=== PATIENT | female | born 1955 | race Caucasian/White ===

== ENCOUNTER → 2018-03-13 05:54 | Outpatient (CLI) | payer BC, SELFPAY ==
--- NOTE | 2018-03-13 09:55 | STRESSREP ---
Stress Test Report Date: 03/13/2018 Procedure: Pharmacologic stress nuclear imaging study Indications: Shortness of breath/dyspnea my: CAD; cardiomyopathy; pulmonary hypertension Consent: Per the patient Procedure: The patient underwent pharmacologic (Regadenoson) evaluation with a peak heart rate of 104 beats per minute (65 predicted maximal heart rate) and a peak blood pressure of 130/72 mmHg. The baseline ECG demonstrated normal sinus rhythm. The peak pharmacologic ECG demonstrated no obvious ECG changes. There was an occasional PVC during recovery. There was no complaint of chest discomfort during pharmacologic infusion or recovery. The examination was discontinued secondary to completion of protocol. Impression: 1. Pharmacologic (Regadenoson) evaluation 2. Peak pharmacologic ECG with no obvious ECG changes. 3. There was an occasional PVC during recovery. 4. Nuclear images pending Myocardial perfusion imaging study: Technique: The patient was injected with 10.9 millicuries of technetium 99m Cardiolite and subsequently rest SPECT Cardiolite nuclear imaging was obtained in the horizontal long, vertical long, and short axis views. The patient underwent pharmacologic (Regadenoson) evaluation with a peak heart rate of 104 beats per minute (65 % percent predicted maximal heart rate) and a peak blood pressure of 130/72 mmHg. The patient was injected with 31.6 millicuries of technetium 99m Cardiolite and subsequently stress SPECT Cardiolite nuclear imaging was obtained in the horizontal long, vertical long, and short axis views. A gated Cardiolite study at peak stress was obtained. Interpretation: Rest and stress SPECT Cardiolite nuclear imaging status post realignment, normalization, and attenuation correction demonstrate a small area of subtle diminished tracer uptake near the apical segments that appear to be somewhat more prominent at rest as opposed to stress but otherwise without significant change. There is end systolic thickening and brightening. The gated Cardiolite study demonstrates myocardial thickening and inward wall motion. The reported LVEF is 57 %. Impression: 1. Rest and stress SPECT currently nuclear imaging demonstrate a small area of subtle diminished tracer uptake near the apical segments that appear to be somewhat more prominent at rest as opposed to stress but otherwise without significant change appearing compatible shifting soft tissue attenuation/artifact with no myocardial perfusion changes considered diagnostic for associated stress-induced myocardial ischemia. 2. The gated Cardiolite study reports an LVEF of 57 %. This note was generated with [employer] software. It may contain incorrect words, spelling, and punctuation that were not noted in checking the note before signing.
== END ==
PROVIDERS: Family Provider Physician Assistant Medical; PCP Physician Assistant Medical; Referring Provider Nurse Practitioner Family; Visit Provider Nurse Practitioner Family
DX: I42.8 Other cardiomyopathies (principal); I10 Essential (primary) hypertension; E78.2 Mixed hyperlipidemia
CPT/HCPCS: 78452; 93017; A9500; A4216; J2785

== ENCOUNTER → 2018-04-18 10:50 | Outpatient (CLI) | payer BC, SELFPAY ==
[2018-04-08 09:27] VITALS: BMI 35.6
--- NOTE | 2018-04-18 10:54 | ECHOCS_ITS ---
Reason For Study: DYSPNEA Procedure This was a 2D Doppler, Color Flow transthoracic echocardiogram. The study was technically difficult. Contrast injection was performed. Exam performed in department. Left Ventricle Normal LV size. Left ventricular systolic function is normal. The estimated ejection fraction is 55 %. No evidence for diastolic dysfunction. No regional wall motion abnormalities noted. Right Ventricle Normal RV size. Normal systolic function. Atria The left atrium is mildly enlarged. Normal right atrium. No doppler evidence for ASD. Mitral Valve There is no mitral annular calcification. Normal mitral valve. Trivial mitral valve insufficiency. Tricuspid Valve Normal tricuspid valve. Trivial tricuspid valve insufficiency. Unable to estimate RV systolic pressure/pulmonary artery pressure due to technically difficult study. Aortic Valve Trisinus/trileaflet aortic valve. Mild focal aortic valve calcification. Pulmonic Valve The pulmonic valve is not well visualized. Mild (1+) pulmonic valve insufficiency. Great Vessels Normal sized aortic root. Calcified aortic root. Pericardium/Pleural Trivial pericardial effusion. There are no echocardiographic indications of cardiac tamponade. Medication 22 gauge I.V. with prn adaptor inserted into left arm. Diluted definity 3ml given slow IV push to enhance endocardial definition. MMode/2D Measurements & Calculations LVIDd: 5.5 cm IVSd: 1.2 cm Ao root diam: 3.2 cm LVIDs: 4.3 cm LVPWd: 1.0 cm RVDd: 3.0 cm FS: 22.4 % LAV(MOD-bp): 42.5 ml LVAd ap4: 33.7 cm2 EDV(MOD-sp2): 55.3 ml LAV(MOD-bp) Indexed: 20.5 ml/m2 EDV(MOD-sp4): 117.4 ml EF(MOD-sp2): 36.8 % LAV(MOD-sp2): 39.6 ml EDV(sp4-el): 122.3 ml LAV(MOD-sp4): 44.7 ml LVAs ap4: 21.0 cm2 ESV(MOD-sp4): 54.2 ml ESV(sp4-el): 56.6 ml EF(MOD-sp4): 53.9 % EF(sp4-el): 53.7 % SV(MOD-sp4): 63.2 ml SV(MOD-sp2): 20.4 ml SV(sp4-el): 65.7 ml LA A4 area: 17.0 cm2 LA dimension(2D): 4.3 cm RA A4 area: 13.0 cm2 Time Measurements MV dec time: 0.25 sec Doppler Measurements & Calculations MV E max haim: 57.1 cm/sec Lat Peak E' Haim: 7.3 cm/sec Med Peak E' Haim: 5.2 cm/sec MV A max haim: 80.5 cm/sec E/E' lat: 7.8 E/E' med: 10.9 MV E/A: 0.71 Ao V2 max: 116.3 cm/sec LV V1 max: 81.2 cm/sec PA V2 max: 100.9 cm/sec Ao max P.4 mmHg LV V1 max P.6 mmHg PI end-d haim: 96.5 cm/sec Interpretation Summary The study was technically difficult. Contrast injection was performed. Left ventricular systolic function is normal. The estimated ejection fraction is 55 %. The left atrium is mildly enlarged. Trivial mitral valve insufficiency. Trivial tricuspid valve insufficiency. Mild focal aortic valve calcification. Mild (1+) pulmonic valve insufficiency. Calcified aortic root. Trivial pericardial effusion. There are no echocardiographic indications of cardiac tamponade. Unable to estimate RV systolic pressure/pulmonary artery pressure due to technically difficult study. No evidence for diastolic dysfunction. Ordering Physician: River Lujan/Gucci Clancy Referring Physician: DAWN GUIDO Performed By: Mandy Alston, KODI, RVT
--- OUTSIDE RECORDS SUMMARY | 2018-06-04 02:13 | XMS RPT_ITS | Summary of Care ---
:1955 Author Organization [facility] Address [address] [place] [address] Phone Care Team Providers Name Role Phone Chiara Randhawa PA-C Primary Care Provider Reason for Visit Reason Comments Pain Follow-up Pain Follow-up Encounter Details Date Type Department Care Team Description 06/05/2017 Office Visit [facility] Eh Garcia Chondromalacia of right patella (Primary Dx); Orthopedic and MD Prasanna Derangement of collateral ligament of left knee Sports Medicine [address] [facility] [address] [place], [place] Medical Office [address] [place] [address] [place] [address] Allergies Active Allergy Reactions Severity Noted Date Comments Other Other (See Comments) 08/25/2015 Dustm, mold, smoke as of this encounter Medications Prescription Sig. Disp. Refills Start Date End Date Status albuterol (PROVENTIL) 07/28/2015 Active 2.5 mg /3 mL (0.083 %) nebulizer solution amoxicillin-clavulanate 07/28/2015 Active (AUGMENTIN) 875-125 mg per tablet azithromycin 07/28/2015 Active (ZITHROMAX) 500 MG tablet ciprofloxacin HCl 07/18/2015 Active (CIPRO) 500 MG tablet levothyroxine 07/21/2015 Active (SYNTHROID, LEVOTHROID) 150 MCG tablet montelukast (SINGULAIR) 07/28/2015 Active 10 mg tablet predniSONE (DELTASONE) 07/28/2015 Active 20 MG tablet predniSONE (DELTASONE) 07/10/2015 Active 10 MG tablet spironolactone 07/26/2015 Active (ALDACTONE) 50 MG tablet sulfamethoxazole-trimet 07/28/2015 Active hoprim (BACTRIM DS,SEPTRA DS) 800-160 mg per tablet INCRUSE ELLIPTA 62.5 08/17/2015 Active mcg/actuation DsDv acetaminophen (TYLENOL) Take 1,000 mg by Active 500 MG tablet mouth. aspirin 81 MG EC tablet Take 81 mg by 11/01/2011 Active mouth. biotin 1 mg tablet Take 1 tablet by Active mouth. carvedilol (COREG) 12.5 07/09/2013 Active MG tablet cholecalciferol, Take 1,000 Units Active vitamin D3, 1,000 unit by mouth. tablet cinnamon bark 500 mg Take by mouth. Active capsule clobetasol (OLUX) 0.05 Apply topically. Active % topical foam doxepin (SINEQUAN) 50 Take 50 mg by 07/14/2012 Active MG capsule mouth. doxepin (SINEQUAN) 25 09/22/2015 Active MG capsule VITAMIN D2 50,000 unit 09/20/2015 Active capsule ferrous sulfate 325 (65 Take 325 mg by Active FE) MG tablet mouth. fluticasone-salmeterol Inhale 2 puffs. Active (ADVAIR HFA) 230-21 mcg/actuation inhaler fluticasone-vilanterol Inhale. Active 100-25 mcg/dose DsDv furosemide (LASIX) 40 Take 40 mg by 01/08/2012 Active MG tablet mouth. gabapentin (NEURONTIN) Take 200 mg by Active 100 MG capsule mouth. MAR OIL ORAL Take by mouth. Active glimepiride (AMARYL) 4 09/20/2015 Active MG tablet insulin glargine 25 units sc qam, 06/10/2014 Active (LANTUS) 100 unit/mL (3 125 units sc mL) In qhs.. lansoprazole (PREVACID) Take 30 mg by 11/26/2013 Active 30 MG capsule mouth. loratadine (CLARITIN) 5 Take by mouth. Active mg/5 mL syrup mometasone (NASONEX) 50 2 sprays into Active mcg/actuation nasal each nostril. spray multivitamin Take 1 tablet by 01/08/2012 Active (THERAGRAN) per tablet mouth. potassium chloride Take 10 mEq by 07/14/2012 Active (K-DUR) 10 MEQ CR mouth. tablet traMADol (ULTRAM) 50 mg Take 50 mg by 07/14/2012 Active tablet mouth. valsartan-hydrochloroth Take 1 tablet by 01/08/2012 Active iazide (DIOVAN-HCT) mouth. 160-25 mg per tablet celecoxib (CELEBREX) TAKE 2 TO 3 90 capsule 3 04/24/2017 Active 100 MG capsule CAPSULES BY MOUTH DAILY as of this encounter Active Problems Problem Noted Date Chondromalacia of right patella 08/25/2015 Derangement of collateral ligament of left knee 08/25/2015 Social History Tobacco Use Types Packs/Day Years Used Date Never Smoker Smokeless Tobacco: Never Used Alcohol Use Drinks/Week oz/Week Comments No 0 Standard drinks or equivalent 0.0 Sex Assigned at Date Recorded Not on file as of this encounter Last Filed Vital Signs Vital Sign Reading Time Taken Blood Pressure 115/73 06/05/2017 11:04 AM EST Pulse 84 06/05/2017 11:04 AM EST Temperature - - Respiratory Rate 18 06/05/2017 11:04 AM EST Oxygen Saturation - - Inhaled Oxygen Concentration - - Weight 99.3 kg (219 lb) 06/05/2017 11:04 AM EST Height 167.6 cm (5' 6) 06/05/2017 11:04 AM EST Body Mass Index 35.35 06/05/2017 11:04 AM EST in this encounter Progress Notes Eh Garcia MD - 06/05/2017 11:56 AM ESTFormatting of this note may be different from the original. [facility] [address] ([address]) [facility] [address] [facility] [address] Urbano Celestin is a 62 y.o. female being seen today, 06/05/17, Chief Complaint Patient presents with ??? Right Knee - Pain, Follow-up ??? 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 Apparently she has a hearing coming up soon to allow a diagnosis of DJD. On her last visit we try to get cortisone injections involving both knees with previous injections helped substantially authorization was not forthcoming and now she has a hearing pending Physical Exam Dictation: [PE] physical examination she does have patellofemoral crepitance in both knees she has no effusion she has joint line tenderness medially can fully extend and flexes to at least 105?? on both knees. There is no instability that can be appreciated standing AP x-rays were obtained today as well one can see mild/moderate medial compartment narrowing of both knees consistent with her early medial compartment Assessment and Plan Dictation: [AP]is allowed apparently hearing pending for allowance of DJD plan once her hearing processes over I will request authorization for injections as her original diagnoses would warrant injections and can get any further allowance of DJD would not change my treatment at this point as I do not feel her disease is bad enough to warrant any other surgical intervention. I have reviewed all relevant histories, medications, allergies, and problem list items with Urbano Celestin during this visit. Review of Systems Constitutional: Negative for appetite change, fatigue and fever. HENT: Negative for sore throat and trouble swallowing. Respiratory: Negative for chest tightness and shortness of breath. Cardiovascular: Negative. Negative for chest pain and palpitations. Gastrointestinal: Negative for nausea and vomiting. Endocrine: Negative. Genitourinary: Negative. Skin: Negative. Allergic/Immunologic: Negative. Neurological: Negative. Negative for light-headedness and headaches. Hematological: Negative. Psychiatric/Behavioral: Negative for agitation and confusion. BP 115/73 Pulse 84 Resp 18 Ht 5' 6 Wt 99.3 kg (219 lb) BMI 35.35 kg/m?? Imaging: No results found. SNOMED CT(R) 1. Chondromalacia of right patella CHONDROMALACIA OF RIGHT PATELLA 2. Derangement of collateral ligament of left knee OLD DISRUPTION OF LIGAMENT OF KNEE Return in about 4 weeks (around 07/03/2017). Eh Garcia MDin this encounter Plan of Treatment Upcoming Encounters Date Type Specialty Care Team Description 07/11/2017 Office Visit Orthopedic Surgery Eh Garcia MD [address] [place] [address] [phone] Health Maintenance Due Date Last Done Comments COLONOSCOPY 1955 HEPATITIS C SCREENING 1955 PAP SMEAR 1955 TETANUS EVERY 10 YR 1955 ZOSTER VACCINE 2016 SEQUENTIAL INFLUENZA VACCINE (#1) 2017 as of this encounter Visit Diagnoses Diagnosis Chondromalacia of right patella - Primary Derangement of collateral ligament of left knee Insurance Payer Benefit Plan / Group Subscriber ID Type Phone Address [employer] [id number] Guarantor Name Account Type Relation to Date of Phone Billing Patient Address [id number] Workers Comp Self 1955 Home: [address] [place] [address] [phone] [place] [address] 88 as of this encounter
--- OUTSIDE RECORDS SUMMARY | 2018-06-04 02:13 | XMS RPT_ITS | Summary of Care ---
:1955 Author Organization [facility] Address [address] [place] [address] Care Team Providers Name Role Phone Chiara Randhawa PA-C Primary Care Provider Reason for Visit Reason Comments Pain Pain Encounter Details Date Type Department Care Team Description 07/11/2017 Office Visit [facility] Eh Garcia Acute arthropathy (Primary Dx); Orthopedic and MD Prasanna Chondromalacia of right patella; Sports Medicine [address] Derangement of collateral ligament of left knee [address] [place], [place] Medical Office [address] [place] [address] [place] [address] Allergies Active Allergy Reactions Severity [...] 100 unit/mL (3 125 units sc mL) InPn qhs.. lansoprazole (PREVACID) Take 30 mg by [...] this encounter Active Problems Problem Noted Date Acute arthropathy 07/11/2017 Chondromalacia of right patella 08/25/2015 Derangement of collateral ligament of left knee 08/25/2015 Social History Tobacco Use Types Packs/Day Years Used Date Never Smoker Smokeless Tobacco: Never Used Alcohol Use Drinks/Week oz/Week Comments No 0 Standard drinks or equivalent 0.0 Sex Assigned at Date Recorded Not on file as of this encounter Last Filed Vital Signs Vital Sign Reading Time Taken Blood Pressure 138/76 07/11/2017 10:42 AM EST Pulse 80 07/11/2017 10:42 AM EST Temperature - - Respiratory Rate - - Oxygen Saturation - - Inhaled Oxygen Concentration - - Weight 101.2 kg (223 lb) 07/11/2017 10:42 AM EST Height 167.6 cm (5' 6) 07/11/2017 10:42 AM EST Body Mass Index 35.99 07/11/2017 10:42 AM EST in this encounter Progress Notes Eh Garcia MD - 07/11/2017 10:59 AM ESTFormatting of this note may be different from the original. [facility] [address] (11) [facility] [address] [facility] [phone] Urbano Celestin is a 62 y.o. female being seen today, 07/11/17, Chief Complaint Patient presents with ??? Left Knee - Pain ??? Right Knee - Pain [chief complaint] bilateral knee pain HPI Dictation: [hpi] is allowed diagnoses are as noted cortisone injections in the past of helped her pain substantially with previous arthroscopy on the left knee ??2 and recent x-ray showing mild/moderate medial compartment narrowing suggestive of early medial compartment arthritis Physical Exam Dictation: [PE] point tenderness medial joint line both knees she has patellofemoral crepitance bilaterally shehas no effusion she can fully extend and flexes to get 105?? Assessment and Plan Dictation: [AP] man will repeat request authorization for bilateral cortisone injections using her allow diagnosis will see her back was I have reviewed all relevant histories, medications, allergies, and problem list items with Urbano Villegas Sabi during this visit. Review of Systems Constitutional: [...] Psychiatric/Behavioral: Negative for agitation and confusion. BP 138/76 (BP Location: Right arm, Patient Position: Sitting, BP Cuff Size: Adult) Pulse 80 Ht5' 6 Wt 101.2 kg (223 lb) BMI 35.99 kg/m?? Imaging: No results found. SNOMED CT(R) 1. Acute arthropathy ACUTE ARTHROPATHY 2. Chondromalacia of right patella CHONDROMALACIA OF RIGHT PATELLA 3. Derangement of collateral ligament of left knee OLD DISRUPTION OF LIGAMENT OF KNEE Return in about 4 weeks (around 08/08/2017). Eh Garcia MDin this encounter Plan of Treatment Upcoming Encounters Date Type Specialty Care Team Description 08/09/2017 Office Visit Orthopedic Surgery Eh Garcia MD [address] [place] [address] Health Maintenance Due Date Last Done Comments COLONOSCOPY 1955 HEPATITIS C SCREENING 1955 PAP SMEAR 1955 TETANUS EVERY 10 YR 1955 ZOSTER VACCINE 2016 SEQUENTIAL INFLUENZA VACCINE (#1) 2017 as of this encounter Visit Diagnoses Diagnosis Acute arthropathy - Primary Unspecified arthropathy, site unspecified Chondromalacia of right patella Derangement of collateral ligament of left knee Insurance Payer Benefit Plan / Group Subscriber ID Type Phone Address [employer] Guarantor Name Account Type Relation to Date of Phone Billing Patient Address [id number] Workers Comp Self 1955 Home: [address] [phone] [place] [address] 88 as of this encounter
--- OUTSIDE RECORDS SUMMARY | 2018-06-04 02:13 | XMS RPT_ITS | Summary of Care ---
:1955 Author Organization [facility] Address [address] [place] [address] Phone Care Team Providers Name Role Phone Chiara Randhawa PA-C Primary Care Provider Encounter Details Date Type Department Care Team Description 06/05/2017 Hospital Encounter [facility] [place], Eh Mims, [address] [place], [place] [address] [phone] [place] [address] Allergies Active Allergy Reactions Severity Noted Date [...] Not on file as of this encounter Plan of Treatment Upcoming Encounters Date Type Specialty Care Team Description 07/11/2017 Office Visit Orthopedic Surgery ViauEh MD [address] [place] [address] [phone] Health Maintenance Due Date Last Done Comments COLONOSCOPY 1955 HEPATITIS C SCREENING 1955 PAP SMEAR 1955 TETANUS EVERY 10 YR 1955 ZOSTER VACCINE 2016 SEQUENTIAL INFLUENZA VACCINE (#1) 2017 as of this encounter Insurance Payer Benefit Plan / Group Subscriber ID Type Phone Address [employer] [id number] as of this encounter
--- OUTSIDE RECORDS SUMMARY | 2018-06-04 02:13 | XMS RPT_ITS | Summary of Care ---
:1955 Author Organization [facility] Address [address] [place] [address] Phone Care Team Providers Name Role Phone Driss Mcgregor MD Primary Care Provider Reason for Visit Reason Comments Pain Follow-up Pain Follow-up Encounter Details Date Type Department Care Team Description 02/07/2017 Office Visit [facility] Eh Garcia Chondromalacia of right Orthopedic and MD Prasanna patella (Primary Sports Medicine [address] Dx);Derangement of [address] [place], [place] collateral ligament of Medical Office [facility] left knee [facility] [phone] [place] [address] Allergies Active Allergy Reactions Severity [...] TAKE 2 TO 3 90 capsule 3 01/09/2017 Active 100 MG capsule CAPSULES BY MOUTH DAILY as of this encounter Active Problems Problem Noted Date Chondromalacia of right patella 08/25/2015 Derangement of collateral ligament of left knee 08/25/2015 as of this encounter Social History Tobacco Use Types Packs/Day Years Used Date Never Smoker Smokeless Tobacco: Never Used Sex Assigned at Date Recorded Not on file as of this encounter Last Filed Vital Signs Vital Sign Reading Time Taken Blood Pressure 144/86 02/07/2017 11:05 AM EDT Pulse 76 02/07/2017 11:05 AM EDT Temperature - - Respiratory Rate - - Oxygen Saturation - - Inhaled Oxygen Concentration - - Weight 98.9 kg (218 lb) 02/07/2017 11:05 AM EDT Height 167.6 cm (5' 6) 02/07/2017 11:05 AM EDT Body Mass Index 35.19 02/07/2017 11:05 AM EDT in this encounter Progress Notes JenauEh MD - 02/07/2017 11:47 AM EDTFormatting of this note may be different from the original. [facility] [address] (11) [facility] [address] [facility] [phone] Urbano Villegas Sabi is a 61 y.o. female being seen today, 02/07/17, Chief Complaint Patient presents with ??? Left Knee - Pain, Follow-up ??? Right Knee - Pain, Follow-up [chief complaint] bilateral knee pain HPI Dictation: [hpi] seen in follow-up she has had prior injections both knees approximately 4 months ago which relieved her pain 70-80% left knee more symptomatic than right with diagnosis as noted Physical Exam Dictation: [PE] point tenderness medial joint line right knee diffuse tenderness left knee no crepitance can fully extend flexes past 100?? Assessment and Plan Dictation: [AP] knee pain with diagnoses as noted plan particular injections helped substantially request authorization for bilateral knee injections through Work[employer]. I have reviewed all relevant histories, medications, [...] Psychiatric/Behavioral: Negative for agitation and confusion. BP 144/86 Pulse 76 Ht 5' 6 Wt 98.9 kg (218 lb) BMI 35.19 kg/m2 Imaging: No results found. SNOMED CT(R) 1. Chondromalacia of right patella CHONDROMALACIA OF PATELLA 2. Derangement of collateral ligament of left knee OLD DISRUPTION OF LIGAMENT OF KNEE Return in about 10 days (around 02/17/2017). Eh Garcia MDin this encounter Plan of Treatment Health Maintenance Due Date Last Done Comments COLONOSCOPY 1955 HEPATITIS C SCREENING 1955 PAP SMEAR 1955 TETANUS EVERY 10 YR 1955 ZOSTER VACCINE 2016 SEQUENTIAL INFLUENZA VACCINE (#1) 2017 as of this encounter Visit Diagnoses Diagnosis Chondromalacia of right patella - Primary Derangement of collateral ligament of left knee in this encounter Insurance Payer Benefit Plan / Group Subscriber ID Type Phone Address [employer] [id number] Guarantor Name Account Type Relation to Date of Phone Billing Patient Address [id number] Workers [employer] Self 1955 Home: [address] [facility] [phone] [place] [address] 88 as of this encounter
--- OUTSIDE RECORDS SUMMARY | 2018-06-04 02:13 | XMS RPT_ITS | Summary of Care ---
:1955 Author Organization [facility] Address [address] [id number] Care Team Providers Name Role Phone SydneeChiara Irene NAIDU Primary Care Provider Reason for Visit Reason Comments Injections bilateral knee Encounter Details Date Type Department Care Team Description 01/13/2018 Clinical Support [facility] Indu Turner Acute arthropathy (Primary Dx); Orthopedic & Sports PRETTY Deshpande Chondromalacia of right patella; Medicine Physicians [address] Derangement of collateral ligament of left knee [address] [place] [address] [phone] Allergies Active Allergy Reactions Severity Noted Date Comments Nut - Unspecified Other Other (See Comments) 08/25/2015 Dustm, mold, [...] iazide (DIOVAN-HCT) mouth. 160-25 mg per tablet finasteride (PROSCAR) 5 08/01/2017 Active mg tablet ARNUITY ELLIPTA 100 07/16/2017 Active mcg/actuation DsDv celecoxib (CELEBREX) TAKE 2 TO 3 90 capsule 3 09/05/2017 Active 100 MG capsule CAPSULES BY MOUTH [...] Not on file as of this encounter Progress Notes Indu Turner CNP - 01/12/2018 4:54 PM EDTAssociated Order(s): [place] ORT LARGE JOINT ARTHROCENTESISPost-Procedure Diagnose(s): Acute arthropathy; Chondromalacia of right patella; Derangement of collateral ligament of left knee LG Jt Injection/Arthrocentesis Performed by: INDU TURNER Authorized by: INDU TURNER CPT 45634 - Large Joint Arthrocentesis: Consent given by: Patient Time out: Immediately prior to the procedure a time out was called Timeout performed at: 01/13/2018 4:54 PM Physician or proceduralist has discussed critical or nonroutine steps, procedure duration and anticipated blood loss: Yes Supporting Documentation: Indications: Pain Procedure Details: Location: Knee Site: L knee Prep: patient was prepped and draped in usual sterile fashion Needle size: 22 G Approach: Anterolateral Medications: 1 mL dexamethasone 4 mg/mL, 1 mL triamcinolone acetonide 40 mg/mL Anesthetic used: Bupivacaine 0.5% and Lidocaine 1% Anesthetic amount (mL): 4 Patient tolerance: Patient tolerated the procedure well with no immediate complications Indu Turner CNP - 01/12/2018 4:54 PM EDTAssociated Order(s): [place] ORT LARGE JOINT ARTHROCENTESISPost-Procedure Diagnose(s): Acute arthropathy; Chondromalacia of right patella; Derangement of collateral ligament of left knee LG Jt Injection/Arthrocentesis Performed by: INDU TURNER Authorized by: INDU TURNER CPT [id number] - Large Joint Arthrocentesis: Consent given by: Patient Time out: Immediately prior to the procedure a time out was called Timeout performed at: 01/13/2018 4:54 PM Physician or proceduralist has discussed critical or nonroutine steps, procedure duration and anticipated blood loss: Yes Supporting Documentation: Indications: Pain Procedure Details: Location: Knee Site: R knee Prep: patient was prepped and draped in usual sterile fashion Needle size: 22 G Approach: Anterolateral Medications: 1 mL dexamethasone 4 mg/mL, 1 mL triamcinolone acetonide 40 mg/mL Anesthetic used: Bupivacaine 0.5% and Lidocaine 1% Anesthetic amount (mL): 4 Patient tolerance: Patient tolerated the procedure well with no immediate complications Indu Turner, [employer] - 01/12/2018 4:53 PM EDTFormatting of this note may be different from the original. 01/12/18 Urbano Celestin 1955 No chief complaint on file. HISTORY of Present Illness: Urbano Celestin is a 62 y.o. year old female that presents today with No chief complaint on file. . Urbano Celestin has had injections in the past. Last injection to right/left knee was in August by and they tolerated well. They have been treated w/ oral medications & injections. Patient denies new injury to the knees. ?? The following portions of the patient's history were reviewed and updated as appropriate: allergies,current medications, past surgical history and problem list Assessment None Referred By: No ref. provider found PAST MEDICAL HISTORY The patient's Medications, Allergies, Past Surgical History, Medical History, Family History and Social History were reviewed and can be found in their online medical record, and I have reviewed this information with Urbano Celestin at the time of their visit. They are significant for Past Medical History: Diagnosis Date ??? Hypertension PHYSICAL EXAM Ortho Exam point tenderness medial joint line both knees no crepitance fully extend and flexes past 100 Additional Notes: IMAGING Notes: none new today. Reviewed from last visit. IMPRESSION And PLAN: Cortisone injection today. Will follow up in 3 months if effective. Call if no improvement in [address](R) 1. Acute arthropathy ACUTE ARTHROPATHY 2. Chondromalacia of right patella CHONDROMALACIA OF RIGHT PATELLA 3. Derangement of collateral ligament of left knee OLD DISRUPTION OF LIGAMENT OF KNEE Indu Turner CNP in this encounter Plan of Treatment Upcoming Encounters Date Type Specialty Care Team Description 04/15/2018 Clinical Support Orthopedic Surgery Indu Turner CNP [address] [id number] [phone] Health Maintenance Due Date Last Done Comments COLONOSCOPY 1955 HEPATITIS C SCREENING 1955 PAP SMEAR 1955 TETANUS EVERY 10 YR 1955 ZOSTER VACCINES (1 of 2) 2006 SEQUENTIAL INFLUENZA VACCINE (#1) 2018 as of this encounter Procedures Procedure Name Priority Date/Time Associated Comments Diagnosis SC ARTHROCENTESIS Routine 01/12/2018 4:54 Acute arthropathy Results for this ASPIR&/INJ MAJOR PM EDT Chondromalacia of procedure are in JT/BURSA W/O US right patella the results Derangement of section. collateral ligament of left knee SC ARTHROCENTESIS Routine 01/12/2018 4:54 Acute arthropathy Results for this ASPIR&/INJ MAJOR PM EDT Chondromalacia of procedure are in JT/BURSA W/O US right patella the results Derangement of section. collateral ligament of left knee in this encounter Results Joint Injection/Arthrocentesis (01/12/2018 4:54 PM) Narrative Performed At Indu Turner CNP? 01/13/2018?1:12 PM LG Jt Injection/Arthrocentesis Performed by: INDU TURNER Authorized by: INDU TURNER CPT [id number] - Large Joint Arthrocentesis: ?Consent given by:?Patient ?Time out: Immediately prior to the procedure a time out was called?Timeout performed at:?01/13/2018 4:54 PM ?Physician or proceduralist has discussed critical or nonroutine steps, procedure duration and anticipated blood loss:?Yes Supporting Documentation: ?Indications:?Pain Procedure Details: ?Location:?Knee ?Site:?L knee ?Prep: patient was prepped and draped in usual sterile fashion?Needle size:?22 G ?Approach:?Anterolateral ?Medications:?1 mL dexamethasone 4 mg/mL, 1 mL triamcinolone acetonide 40 mg/mL ?Anesthetic used:?Bupivacaine 0.5% and Lidocaine 1% ?Anesthetic amount (mL):?4 ?Patient tolerance:?Patient tolerated the procedure well with no immediate complications Joint Injection/Arthrocentesis (01/12/2018 4:54 PM) Narrative Performed At Indu Turner CNP? 01/13/2018?1:12 PM LG Jt Injection/Arthrocentesis Performed by: INDU TURNER Authorized by: INDU TURNER CPT [id number] - Large Joint Arthrocentesis: ?Consent given by:?Patient ?Time out: Immediately prior to the procedure a time out was called?Timeout performed at:?01/13/2018 4:54 PM ?Physician or proceduralist has discussed critical or nonroutine steps, procedure duration and anticipated blood loss:?Yes Supporting Documentation: ?Indications:?Pain Procedure Details: ?Location:?Knee ?Site:?R knee ?Prep: patient was prepped and draped in usual sterile fashion?Needle size:?22 G ?Approach:?Anterolateral ?Medications:?1 mL dexamethasone 4 mg/mL, 1 mL triamcinolone acetonide 40 mg/mL ?Anesthetic used:?Bupivacaine 0.5% and Lidocaine 1% ?Anesthetic amount (mL):?4 ?Patient tolerance:?Patient tolerated the procedure well with no immediate complications in this encounter Visit Diagnoses Diagnosis Acute arthropathy - Primary Unspecified arthropathy, site unspecified Chondromalacia of right patella Derangement of collateral ligament of left knee Administered Medications Inactive Administered Medications - up to 3 most recent administrations Medication Order MAR Action Action Date Dose Rate Site dexamethasone (DECADRON) 1 mL, Given 01/12/2018 16:54 EDT 2 mL triamcinolone acetonide (KENALOG-40) 40 mg/mL 1 mL Injection, Starting 01/12/18 at 1654 dexamethasone (DECADRON) 1 mL, triamcinolone Given 01/12/2018 16:55 EDT 2 mL acetonide (KENALOG-40) 40 mg/mL 1 mL Injection, Starting 01/12/18 at 1655 in this encounter
--- OUTSIDE RECORDS SUMMARY | 2018-06-04 02:13 | XMS RPT_ITS | Summary of Care ---
:1955 Author Organization [facility] Address [address] [id number] Care Team Providers Name Role Phone Chiara Randhawa PA-C Primary Care Provider Reason for Visit Reason Comments Injections bilateral knee Encounter Details Date Type Department Care Team Description 08/09/2017 Office Visit [facility] Orthopedic Eh Sanders Acute arthropathy and Sports Medicine MD Prasanna (Primary Dx) [address] [facility] [address] [facility] Medical Office [address] [phone] [place] [address] Allergies Active Allergy Reactions Severity [...] 100 MG capsule CAPSULES BY MOUTH DAILY finasteride (PROSCAR) 5 08/01/2017 Active mg tablet ARNUITY ELLIPTA 100 07/16/2017 Active mcg/actuation DsDv as of this encounter Active Problems Problem [...] Vital Sign Reading Time Taken Blood Pressure 148/83 08/09/2017 10:24 AM EDT Pulse 82 08/09/2017 10:24 AM EDT Temperature - - Respiratory Rate - - Oxygen Saturation - - Inhaled Oxygen Concentration - - Weight 102.5 kg (226 lb) 08/09/2017 10:24 AM EDT Height 167.6 cm (5' 6) 08/09/2017 10:24 AM EDT Body Mass Index 36.48 08/09/2017 10:24 AM EDT in this encounter Progress Notes Eh Sanders MD - 08/09/2017 11:51 AM EDTAssociated Order(s): [place] ORT LARGE JOINT ARTHROCENTESISPost-Procedure Diagnose(s): Acute arthropathyLG Jt Injection/Arthrocentesis Performed by: EH SANDERS Authorized by: EH SANDERS CPT 22022 - Large Joint Arthrocentesis: Consent given by: Patient Timeout performed at: 08/09/2017 11:51 AM Physician or proceduralist has discussed critical or nonroutine steps, procedure duration and anticipated blood loss: Yes Supporting Documentation: Indications: Pain Procedure Details: Location: Knee Site: L knee Needle size: 22 G Medications: 80 mg methylPREDNISolone acetate 40 mg/mL Anesthetic used: Lidocaine 1% PF Eh Sanders MD - 08/09/2017 11:50 AM EDTAssociated Order(s): [place] ORT LARGE JOINT ARTHROCENTESISPost-Procedure Diagnose(s): Acute arthropathyLG Jt Injection/Arthrocentesis Performed by: EH SANDERS Authorized by: EH SANDERS CPT 47821 - Large Joint Arthrocentesis: Consent given by: Patient Timeout performed at: 08/09/2017 11:51 AM Physician or proceduralist has discussed critical or nonroutine steps, procedure duration and anticipated blood loss: Yes Supporting Documentation: Indications: Pain Procedure Details: Location: Knee Site: R knee Needle size: 22 G Medications: 80 mg methylPREDNISolone acetate 40 mg/mL Anesthetic used: Lidocaine 1% PF Eh Sanders MD - 08/09/2017 11:49 AM EDTFormatting of this note may be different from the original. [facility] [address]) [facility] [address] [facility] [address] Urbano Celestin is a 62 y.o. female being seen today, 08/09/17, Chief Complaint Patient presents with ??? Injections bilateral knee Bilateral knee pain HPI Dictation: [hpi] patient returns with bilateral knee pain with low diagnosis of arthritis both knees intra-articular injections previously of helped substantially she is here to request another injection for thatreason Physical Exam Dictation: [PE] point tenderness medial joint line both knees no crepitance fully extend and flexes past 100 Assessment and Plan Dictation: [AP] lateral DJD knees plan both injected with cane and cortisone will see her back in 3 months or as needed I have reviewed all relevant histories, medications, [...] Psychiatric/Behavioral: Negative for agitation and confusion. BP 148/83 Pulse 82 Ht 5' 6 Wt 102.5 kg (226 lb) BMI 36.48 kg/m?? Imaging: No results found. SNOMED CT(R) 1. Acute arthropathy ACUTE ARTHROPATHY Return in about 3 months (around 11/08/2017). Eh Sanders MDin this encounter Plan of Treatment Upcoming Encounters Date Type Specialty Care Team Description 11/22/2017 Clinical Support Orthopedic Surgery Eh Sanders MD [facility] [place] [address] [phone] Health Maintenance Due Date Last Done Comments COLONOSCOPY 1955 HEPATITIS C SCREENING 1955 PAP SMEAR 1955 TETANUS EVERY 10 YR 1956 ZOSTER VACCINE 2016 SEQUENTIAL INFLUENZA VACCINE (#1) 2017 as of this encounter Results Joint Injection/Arthrocentesis (08/09/2017 11:51 AM) Narrative Eh Sanders MD? 08/09/2017 11:52 AM LG Jt Injection/Arthrocentesis Performed by: EH SANDERS Authorized by: EH SANDERS [facility] [id number] - Large Joint Arthrocentesis: ?Consent given by:?Patient ?Timeout performed at:?08/09/2017 11:51 AM ?Physician or proceduralist has discussed critical or nonroutine steps, procedure duration and anticipated blood loss:?Yes Supporting Documentation: ?Indications:?Pain Procedure Details: ?Location:?Knee ?Site:?L knee ?Needle size:?22 G ?Medications:?80 mg methylPREDNISolone acetate 40 mg/mL ?Anesthetic used:?Lidocaine 1% PF Joint Injection/Arthrocentesis (08/09/2017 11:50 AM) Narrative Eh Sanders MD? 08/09/2017 11:52 AM LG Jt Injection/Arthrocentesis Performed by: EH SANDERS Authorized by: EH SANDERS [facility] - Large Joint Arthrocentesis: ?Consent given by:?Patient ?Timeout performed at:?08/09/2017 11:51 AM ?Physician or proceduralist has discussed critical or nonroutine steps, procedure duration and anticipated blood loss:?Yes Supporting Documentation: ?Indications:?Pain Procedure Details: ?Location:?Knee ?Site:?R knee ?Needle size:?22 G ?Medications:?80 mg methylPREDNISolone acetate 40 mg/mL ?Anesthetic used:?Lidocaine 1% PF in this encounter Visit Diagnoses Diagnosis Acute arthropathy - Primary Unspecified arthropathy, site unspecified Administered Medications Inactive Administered Medications - up to 3 most recent administrations Medication Order MAR Action Action Date Dose Rate Site methylPREDNISolone acetate Given 08/09/2017 11:51 EDT 80 mg (DEPO-medrol) injection 80 mg 80 mg, Intra-articular, Starting 08/09/17 at 1151 methylPREDNISolone acetate (DEPO-medrol) injection Given 08/09/2017 11:51 EDT 80 mg 80 mg 80 mg, Intra-articular, Starting Sat08/09/17 at 1151 in this encounter Insurance Payer Benefit Plan / Group Subscriber ID Type Phone Address [employer] x[employer] [id number] Guarantor Name Account Type Relation to Date of Phone Billing Patient Address [id number] Workers Comp Self 1955 Home: [address] [facility] [phone] [place] [address] 87 as of this encounter
--- OUTSIDE RECORDS SUMMARY | 2018-06-04 02:14 | XMS RPT_ITS ---
:1955 Author Organization OHIP Support Name Relationship Address Phone LEISURE, DAGO Unavailable Unavailable + LEISURE, DAGO Unavailable Unavailable + LEISURE, DAGO Unavailable Unavailable + LEISURE, DAGO Unavailable [address] + [place] [address] [facility] Unavailable [address] + [place] [address] LEISURE, DAGO Unavailable [address] + [facility] [address] [facility] Unavailable [address] + [place] [address] LEISURE, DAGO Unavailable [address] + [place] [address] [facility] Unavailable [address] + [place] [address] LEISURE, DAGO Unavailable [address] + [place] [address] [facility] Unavailable [address] + [place] [address] LEISURE, DAGO Unavailable [address] + [place] [address] [facility] Unavailable [address] + [place] [address] LEISURE, DAGO Unavailable [address] + [place] [address] [facility] Unavailable [address] + [place] [address] LEISURE, DAGO Unavailable Unavailable + LEISURE, DAGO Unavailable Unavailable + LEISURE, DAGO Unavailable Unavailable + LEISURE, DAGO Unavailable Unavailable + LEISURE DAGO Unavailable Unavailable + LEISURE, DAGO Unavailable [address] + [address] [place] [address] NOT GIVEN Unavailable [address] + [place] [address] LEISUREREMINGTONDAGO Unavailable Unavailable + LEISURER[place]DAGO Unavailable . + ., [place] . [place] Unavailable [address] + [place] [id number] Care Team Providers Name Role Phone Gucci Clancy Attending Unavailable Roof, River H Referring Unavailable Roof, River Lai Attending Unavailable Sydnee, Dawn Referring Unavailable Roof, River Lai Attending Unavailable Roof, River H Referring Unavailable Sydnee, Dawn Primary Care Unavailable Gucci Clancy Attending Unavailable Roof, River H Referring Unavailable Roof, River H Attending Unavailable Register, Dawn Referring Unavailable Roof, River H Attending Unavailable Roof, River H Referring Unavailable Register, Dawn Primary Care Unavailable Gucci Clancy Attending Unavailable Sydnee, Dawn Referring Unavailable Sydnee, Dawn Primary Care Unavailable HARVINDER RODRIGUEZ Referring Unavailable HARVINDER RODRIGUEZ Attending Unavailable SYDNEE, DAWN B Referring Unavailable VIAU, GILBERTO RENO Attending Unavailable SYDNEE, DAWN ANASTASIYA Primary Care Unavailable VIAU, GILBERTO RENO Attending Unavailable SYDNEE, DAWN ANASTASIYA Primary Care Unavailable VIAU, GILBERTO RENO Attending Unavailable SYDNEE, DAWN ANASTASIYA Primary Care Unavailable VIAU, GILBERTO RENO Attending Unavailable SYDNEE, DAWN ANASTASIYA Primary Care Unavailable INDU MCELROY Attending Unavailable SYDNEE, DAWN ANASTASIYA Primary Care Unavailable VIAU, GILBERTO RENO Attending Unavailable SYDNEE, DAWN ANASTASIYA Primary Care Unavailable FANELLOINDU Attending Unavailable SYDNEE, DAWN ANASTASIYA Primary Care Unavailable VIAU, GILBERTO RENO Attending Unavailable SYDNEE, DAWN ANASTASIYA Primary Care Unavailable Juno Hodges Attending Unavailable SYDNEE, DAWN B Primary Care Unavailable SYDNEE, DAWN B Attending Unavailable SYDNEE, DAWN B Primary Care Unavailable SYDNEE, DAWN B Admitting Unavailable Juno Hodges Attending Unavailable SYDNEE, DAWN B Primary Care Unavailable Hodges, Juno R Admitting Unavailable Hodges, Juno R Attending Unavailable SYDNEE, DAWN B Primary Care Unavailable Hodges, Juno R Admitting Unavailable Hodges, Juno R Attending Unavailable SYDNEE, DAWN B Primary Care Unavailable Hodges, Juno R Attending Unavailable SYDNEE, DAWN B Primary Care Unavailable SYDNEE, DAWN B Attending Unavailable SYDNEE, DAWN B Primary Care Unavailable SYDNEE, DAWN B Admitting Unavailable Hodges, Juno R Attending Unavailable SYDNEE, DAWN B Primary Care Unavailable Hodges, Juno R Admitting Unavailable Hodges, Juno R Attending Unavailable SYDNEE, DAWN B Primary Care Unavailable Hodges, Juno R Admitting Unavailable Hodges, Juno R Attending Unavailable SYDNEE, DAWN B Primary Care Unavailable SYDNEE, DAWN B Admitting Unavailable SYDNEE, DAWN B Attending Unavailable SYDNEE, DAWN B Primary Care Unavailable SYDNEE, DAWN B Admitting Unavailable SYDNEE, DAWN B Attending Unavailable SYDNEE, DAWN B Primary Care Unavailable Radha, Dr. Gilberto Galvin Attending Unavailable Radha, Dr. Gilberto Galvin Admitting Unavailable PROBLEMS PROBLEMS DATE TYPE CONDITION / CODE ATTENDING STATUS SOURCE 05/12/2018 Unknown R06.09 - Other forms [place], Active [facility] of dyspnea / [facility] R06.09(ICD-10) Hospital Repository 04/08/2018 Unknown I42.8 - Other [facility] Active [place] cardiomyopathies / Community I42.8(ICD-10) Hospital Repository 04/08/2018 [facility] [place] Atherosclerotic [facility] Community disease of [facility] coronary artery Repository without angina pectoris / I25.10(ICD-10) 03/13/2018 Unknown E78.2 - Mixed [facility] [place] hyperlipidemia / Community E78.2(ICD-10) Hospital Repository 03/13/2018 Unknown I10 - [facility] [place] (primary) Community hypertension / Hospital I10(ICD-10) Repository 07/11/2017 Admitting Arthropathy, INDU MCELROY Active [facility] diagnosis unspecified / [place] M12.9(ICD-10) Repository 05/14/2013 Active Postprocedural NA Active [place] hypothyroidism / Clinic Main E89.0(ICD-10) [place] Repository 11/01/2011 Active Malignant neoplasm of NA Active [place] thyroid gland / Clinic Main C73(ICD-10) [place] Repository 07/11/2017 Admitting Unknown / VIAU, GILBERTO [facility] diagnosis UNK(Unknown) [facility] Repository 06/06/2017 Admitting Pain, unspecified / VIAU, GILBERTO [facility] diagnosis R52(ICD-10) [facility] Repository 08/25/2015 Admitting Unspecified internal VIAU, GILBERTO [facility] diagnosis derangement of left [facility] knee / M23.92(ICD-10) Repository 08/25/2015 Admitting Chondromalacia VIAU, [facility]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, right knee ROWDYDEMETRIS [facility] / M22.41(ICD-10) Repository 04/11/2017 Unknown I42.9 - [place], Active [place] Cardiomyopathy, [facility] unspecified / Hospital I42.9(ICD-10) Repository 04/11/2017 Unknown I27.20 - Pulmonary [place], Active [place] hypertension, [facility] unspecified / Hospital I27.20(ICD-10) Repository PROCEDURES PROCEDURES No Procedure Records FoundRESULTS RESULTS ECHO, COMPLETE W/ Observed: 04/18/2018 Status: F Source: [place] CONTRAST 5:14 PM [facility] [place] REPOSITORY [facility] Cardiovascular Services [address] [place] [address] Echo Complete W/ Contrast 04/18/18 1103 MR#: [id number] Acct: [id number] Name: NICOLLE LEIGH Rep #: [id number] : 1955 63 From: Gucci Clancy MD Attending Dr: River Lujan NP Status: REG I Ordering Dr: River Lujan P[employer]ERHANGER AND PAINTER-C Date: 04/18/18 Location: [facility] Sex: F C Admitted: Reason For Study: DYSPNEA Procedure This was a 2D Doppler, Color Flow transthoracic echocardiogram. The study was technically difficult. Contrast injection was performed. Exam performed in department. Left Ventricle Normal LV size. Left ventricular systolic function is normal. The estimated ejection fraction is 55 %. No evidence for diastolic dysfunction. No regional wall motion abnormalities noted. Right Ventricle Normal RV size. Normal systolic function. Atria The left atrium is mildly enlarged. Normal right atrium. No doppler evidence for ASD. Mitral Valve There is no mitral annular calcification. Normal mitral valve. Trivial mitral valve insufficiency. Tricuspid Valve Normal tricuspid valve. Trivial tricuspid valve insufficiency. Unable to estimate RV systolic pressure/pulmonary artery pressure due to technically difficult study. Aortic Valve Trisinus/trileaflet aortic valve. Mild focal aortic valve calcification. Pulmonic Valve The pulmonic valve is not well visualized. Mild (1+) pulmonic valve insufficiency. Great Vessels Normal sized aortic root. Calcified aortic root. Pericardium/Pleural Trivial pericardial effusion. There are no echocardiographic indications of cardiac tamponade. Medication 22 gauge I.V. with prn adaptor inserted into left arm. Diluted definity 3ml given slow IV push to enhance endocardial definition. MMode/2D Measurements AND Calculations LVIDd: 5.5 cm IVSd: 1.2 cm Ao root diam: 3.2 cm LVIDs: 4.3 cm LVPWd: 1.0 cm RVDd: 3.0 cm FS: 22.4 % LAV(MOD-bp): 42.5 ml LVAd ap4: 33.7 cm2 EDV(MOD-sp2): 55.3 ml LAV(MOD-bp) Indexed: 20.5 ml/m2 EDV(MOD-sp4): 117.4 ml EF(MOD-sp2): 36.8 % LAV(MOD-sp2): 39.6 ml EDV(sp4-el): 122.3 ml LAV(MOD-sp4): 44.7 ml LVAs ap4: 21.0 cm2 ESV(MOD-sp4): 54.2 ml ESV(sp4-el): 56.6 ml EF(MOD-sp4): 53.9 % EF(sp4-el): 53.7 % SV(MOD-sp4): 63.2 ml SV(MOD-sp2): 20.4 ml SV(sp4-el): 65.7 ml LA A4 area: 17.0 cm2 LA dimension(2D): 4.3 cm RA A4 area: 13.0 cm2 Time Measurements MV dec time: 0.25 sec Doppler Measurements AND Calculations MV E max haim: 57.1 cm/sec Lat Peak E' Haim: 7.3 cm/sec Med Peak E' Hami: 5.2 cm/sec MV A max haim: 80.5 cm/sec E/E' lat: 7.8 E/E' med: 10.9 MV E/A: 0.71 Ao V2 max: 116.3 cm/sec LV V1 max: 81.2 cm/sec PA V2 max: 100.9 cm/sec Ao max P.4 mmHg LV V1 max P.6 mmHg PI end-d haim: 96.5 cm/sec Interpretation Summary The study was technically difficult. Contrast injection was performed. Left ventricular systolic function is normal. The estimated ejection fraction is 55 %. The left atrium is mildly enlarged. Trivial mitral valve insufficiency. Trivial tricuspid valve insufficiency. Mild focal aortic valve calcification. Mild (1+) pulmonic valve insufficiency. Calcified aortic root. Trivial pericardial effusion. There are no echocardiographic indications of cardiac tamponade. Unable to estimate RV systolic pressure/pulmonary artery pressure due to technically difficult study. No evidence for diastolic dysfunction. Ordering Physician: River Lujan/Gucci Clancy Referring Physician: DAWN RANDHAWA Performed By: Mandy Alston, KODI, RVT 04/18/181713 Date Gucci Clancy MD CC: HELENE Lujan; Dawn Randhawa Date Dictated: 04/18/18 1103 Date Transcribed: 04/18/181713 [employer] Department Supervisor: Signed CARDIOLOGY VISIT Observed: 04/08/2018 Status: F Source: [place] REPORT 11:46 AM [facility] [address] [place] [address] OFFICE VISIT Date of Service: 04/08/18 MR#: [id number] Acct: [id number] Name: NICOLLE LEIGH Rep #: [id number] : 1955 Provider: HELENE Lujan Age/Sex: 63/F [place] [facility] [place]: Signed [facility] HPI Details: NICOLLE LEIGH, is a 63 F who presents to the office today for a cardiovascular outpatient follow-up. She has a history of non CAD related cardiomyopathy, pulmonary hypertension, hypertension, diabetes mellitus, thyroid disorder, and hyperlipidemia. Pt. denies symptoms of near syncope, or syncopal episodes. Pt. denies claudication issues. Pt. denies PND, fever, chills, blood in urine, blood in stool, or myalgia. She states continual shortness of breath on exertion. She continues to wear 3-5 L of oxygen based on activity level. She states with exertion she notices an increase in palpitation. She states this is associated with SOB and intermittent chest tightness at times. This improves with rest in a few minutes. She states noticing lightheadedness and dizziness with exertion and when bending forward. She states improved edema with diuretic adjustment. She states a continual decrease in energy. Intake Vital Signs04/08/18 Height 5 ft 6 in 04/08/18 Weight: 221 lb 04/08/18 Body Mass Index (BMI) 35.6 04/08/18 Blood Pressure 128/64 H Intake Visit Reasons: 1 m Director Life Required: No Accompanied by: None Is patient in pain?: No Allergies gabapentin Allergy (Intermediate, Verified 04/08/18 09:36) feels loopy Medications Albuterol Inhaler [Ventolin Hfa (SP)] 1 puff INHALATION PRN PRN 07/22/14 [History Confirmed 04/08/18] Aspirin [Aspirin, Baby] 81 mg PO DAILY@0800 07/22/14 [History Confirmed 04/08/18] Bilberry 125 mg PO DAILY 07/22/14 [History Confirmed 04/08/18] Biotin 1 mg PO DAILY 07/22/14 [History Confirmed 04/08/18] Cinnamon 500 mg PO DAILY 07/22/14 [History Confirmed 04/08/18] Clobetasol Propionate/Emoll [Clobetasol Emollient 0.05% Crm] 30 gm TP UD 07/22/14 [History Confirmed 04/08/18] Doxepin HCl [Sinequan] 10 mg PO QHS 07/22/14 [History Confirmed 04/08/18] Garlic 400 mg PO DAILY 07/22/14 [History Confirmed 04/08/18] Insulin Glargine [Lantus SoloStar Pen] 0 units SC UD 07/22/14 [History Confirmed 04/08/18] Insulin Lispro [Humalog] 0 unit SC UD 07/22/14 [History Confirmed 04/08/18] Ipratropium/Albuterol Sulfate [Duoneb] 3 ml INHALATION PRN PRN 07/22/14 [History Confirmed 04/08/18] Lansoprazole [Prevacid] 30 mg PO DAILY 07/22/14 [History Confirmed 04/08/18] Levothyroxine Sodium [Levoxyl] 150 mcg PO DAILY 07/22/14 [History Confirmed 04/08/18] Mometasone Furoate [Nasonex] 1 spray NASAL UD 07/22/14 [History Confirmed 04/08/18] Montelukast [Singulair] 10 mg PO DAILY 07/22/14 [History Confirmed 04/08/18] Multivitamins,Therapeutic [Multivitamin] 1 tab PO DAILY 07/22/14 [History Confirmed 04/08/18] Triamcinolone Acetonide 15 gm TP UD 07/22/14 [History Confirmed 03/06/18] ferrous sulfate 325 mg (65 mg iron) tablet 325 mg PO ONCE tab 04/09/17 [History Confirmed 04/08/18] hydrochlorothiazide 12.5 mg tablet 12.5 mg PO DAILY #90 tab 01/03/18 [Rx Confirmed 04/08/18] carvedilol 12.5 mg tablet 12.5 mg PO BID #180 tab 03/06/18 [Rx Confirmed 04/08/18] desoximetasone 0.25 % topical cream 1 applic TOPICAL BID 03/06/18 [History Confirmed 04/08/18] finasteride 5 mg tablet 2.5 mg PO DAILY tab 03/06/18 [History Confirmed 04/08/18] fluticasone 100 mcg-umeclid 62.5 mcg-vilant 25 mcg powd for inhalation 1 inh INHALATION DAILY 03/06/18 [History Confirmed 04/08/18] furosemide 40 mg tablet 40 mg PO BID #180 tab 03/06/18 [Rx Confirmed 04/08/18] losartan 50 mg-hydrochlorothiazide 12.5 mg tablet 1 tab PO BID #180 tab 03/06/18 [Rx Confirmed 04/08/18] Oxygen, Home [Home Oxygen] See Rx Instructions INTRANASAL 24XD 04/08/18 [History Confirmed 04/08/18] celecoxib 100 mg capsule 100 mg PO TID cap 04/08/18 [History Confirmed 04/08/18] cholecalciferol (vitamin D3) 10,000 unit capsule 10,000 unit PO .2 x per week cap 04/08/18 [History Confirmed 04/08/18] potassium chloride ER 10 mEq tablet,extended release 10 meq PO DAILY 04/08/18 [History Confirmed 04/08/18] Ejection fraction %: 50 to 54 PFS Medical History Chest pain (Acute) Mixed hyperlipidemia (Chronic) Non-ischemic cardiomyopathy (Chronic) Atherosclerosis of [place] coronary artery of [place] heart without angina pectoris (Chronic) Benign essential HTN (Chronic) COLD (chronic obstructive lung disease) (Chronic) DM2 (diabetes mellitus, type 2) (Chronic) GERD (gastroesophageal reflux disease) (Chronic) ANTOINE (obstructive sleep apnea) (Chronic) Osteoarthritis (Chronic) Papillary thyroid carcinoma (Chronic) Pulmonary HTN (Chronic) Cancer of thyroid (Chronic) Fibromyalgia (Chronic) Surgical History H/O thyroidectomy (Resolved) H/O: hysterectomy (Resolved) History of cholecystectomy (Resolved) History of lumpectomy of left breast (Resolved) History of tonsillectomy (Resolved) Family History Mother , Pacemaker CAD (coronary artery disease) Father , Pacemaker/defibrillator CAD (coronary artery disease) CVA (cerebral vascular accident) Brother CAD (coronary artery disease) Social History Smoking Status: Former smoker how long ago did patient quit smokin years ago alcohol intake: never caffeine: Yes Type: coffee Number of servings: 3 ROS Const Const: Positive for fatigue; negative for weakness, weight gain, weight loss, frequent falls or excessive sweating Eyes Eyes: Negative for change in vision, blurry vision or transient loss of vision ENT ENT: Positive for dizziness (occasional dizziness; HX vertigo); negative for balance problems Cardio Chest Pain: Yes Palpitations: Yes Edema: Bilateral (improving) Muscle aches with walking: None Resp Respiratory: Positive for SOB with activity (Patient reports slinght increased SOB w/activity, patient reports that when she lifts things with arms she notes SOB) and wheezing (Patient reports productive cough w/white/yellow sputum production); negative for SOB at rest, SOB orthopnea\SOB lying down or paroxysmal nocturnal dyspnea GI GI: Positive for nausea; negative vomiting or vomiting blood/hematemesis : Negative for hematuria Musc Musc: Negative for balance problems Skin Skin: Negative non-healing lesions or rash Neuro Neuro: Positive for dizziness (occasional dizziness; HX vertigo) and lightheadedness; negative for weakness, frequent falls, blurry vision, near syncope or syncope Ramon Hematologic/Lymphatic: Negative for easy bleeding Endo Endo: Positive for fatigue; negative for excessive sweating Psych Psych: Negative for anxiety or depression Allergy Allergy/Immunology: Negative for rash Cardiology Exam Const Appearance: cooperative, healthy appearing and no acute distress Nutritional Appearance: obese and well nourished Orientation: alert, awake, oriented x3 and oriented to person Head Head: normal to inspection Ears: hearing grossly normal bilaterally Nose: external nose normal Face and Sinus: face symmetric Mouth: oral mucosae normal Eyes General: appearance normal, both eyes and all related structures Pupils: PERRL EOM: EOM intact bilaterally Neck Neck: normal visual inspection Carotids: normal carotid upstroke Chest Chest inspection: normal inspection of the chest, symmetric chest movement and normal respiratory effort Auscultation: Bilateral: Clear to Auscultation Cardio Palpation: normal PMI Rate: regular rate Rhythm: regular rhythm Heart sounds: S1 normal, S2 normal and positive S4; negative rub, murmur or gallop GI GI: obese and normal to inspection Neuro General: alert, awake, oriented x3 and oriented to Skin Skin: no rashes or lesions noted Extremities Pulses: Normal: Right Posterior Tibial Pulse, Left Posterior Tibial Pulse, Right Radial Pulse, Left Radial Pulse Lower Extremity Edema: Trace: Bilateral Psych Psychological: normal affect Supplemental Info Echocardiogram from April 2017 showed estimated ejection fraction of 50%, trivial mitral valve insufficiency, trivial tricuspid valve insufficiency, mild pulmonic valve insufficiency, and unable to calculated RVSP and diastolic dysfunction. Stress test from March 2018 showed peak pharmacologic ECG with no obvious ECG changes and nuclear images negative for stress-induced myocardial ischemia and ejection fraction 57%. Heart catheterization in July 2014 showed an ejection fraction of 55%, elevated LVEDP, mildly elevated intrapulmonary and right heart pressures, left main as angiographically normal, LAD as angiographically normal, LCx as angiographically normal, RCA there is a large dominant vessel with right AV segment having minimal luminal irregularities. Assessment AND Plan 1. Atherosclerosis of [place] coronary artery of [place] heart without angina pectoris I25.10 Plan Her heart catheterization July 2014 showed ejection fraction 55%, mildly elevated intrapulmonary and right heart pressure, and angiographically normal coronary arteries with a right AV segment having minimal luminal irregularities. She underwent a stress test after last office visit that showed no signs of stress-induced myocardial ischemia. She continues to have intermittent chest pain associated with her shortness of breath. It is unclear if this is related to her pulmonary issues. At this time, she will continue to follow-up with hydraulic press tender and we will continue to monitor. Orders Orders: 2. Chest pain, unspecified type R07.9 Plan She continues to have intermittent chest pain. Her most recent stress test in March 2018 was negative for stress-induced myocardial ischemia. At this time she will continue follow-up with primary care physician and hydraulic press tender for noncardiac etiology. Depending on her overall course further testing can be considered if indicated. 3. Non-ischemic cardiomyopathy I42.8 Plan Her most recent echocardiogram in April 2017 showed ejection fraction of 50%. Patient continues to have shortness of breath and thus she will undergo a repeat echocardiogram to discern for any changes including measurement of RVSP. It is possible that her shortness of breath is related to her COPD and pulmonary changes. Further recommendation will be made based on results of her echocardiogram. Orders Orders: 4. Pulmonary HTN I27.20 Plan This was not able to be calculated on her most recent echocardiogram in April 2017. Her heart catheterization July 2014 showed mildly elevated intrapulmonary and right heart pressures. She will continue with blood pressure and diuretic medication. We will continue to monitor. 5. Benign essential HTN I10 Plan Patient's blood pressure is well-controlled today in the office. We will continue to monitor this. We will not make any medication regimen changes. 6. Mixed hyperlipidemia E78.2 Plan She will continue follow-up with primary care physician for treatment. Plan Detail Other Orders Orders: Other Medications New: Additional Comments Thank you for allowing us to participate in the patient's plan of care, if you have any questions please do not hesitate to call. This note was generated using a voice recognition system and there may be incorrect words, spelling, or punctuation that were not noted upon reviewing the office note prior to saving. Follow Up 6 Months (PAPERHANGER AND PAINTER/PA) Coding Level of Care Code Off vis,est,level 4 Diagnoses Atherosclerosis of [place] coronary artery of [place] heart without angina pectoris I25.10 Chest pain, unspecified type R07.9 Chest pain type: unspecified Non-ischemic cardiomyopathy I42.8 Pulmonary HTN I27.20 Benign essential HTN I10 Mixed hyperlipidemia E78.2 Coding Level of Care Code Off vis,est,level 4 Diagnoses Atherosclerosis of [place] coronary artery of [place] heart without angina pectoris I25.10 Chest pain, unspecified type R07.9 Chest pain type: unspecified Non-ischemic cardiomyopathy I42.8 Pulmonary HTN I27.20 Benign essential HTN I10 Mixed hyperlipidemia E78.2 04/08/18 1146 <Electronically signed by River MORTON> Date River MORTON Cosigner Signature: Date (if applicable) CC: Dawn Randhawa STRESS REPORT Observed: 03/13/2018 Status: F Source: [place] 9:58 AM [facility] [place] REPOSITORY [facility] Cardiovascular Services [address] [place] [id number] MR#: [id number] Acct: [id number] Name: NICOLLE LEIGH Nelly Rep #: [id number] : 1955 62 From: Gucci Clancy MD Primary Care: Dawn Randhawa Status: REG CLI Ordering Dr: Corey: Stef Zuniga Stress Test Report Date: 03/13/2018 Procedure: Pharmacologic stress nuclear imaging study Indications: Shortness of breath/dyspnea my: CAD; cardiomyopathy; pulmonary hypertension Consent: Per the patient Procedure: The patient underwent pharmacologic (Regadenoson) evaluation with a peak heart rate of 104 beats per minute (65 predicted maximal heart rate) and a peak blood pressure of 130/72 mmHg. The baseline ECG demonstrated normal sinus rhythm. The peak pharmacologic ECG demonstrated no obvious ECG changes. There was an occasional PVC during recovery. There was no complaint of chest discomfort during pharmacologic infusion or recovery. The examination was discontinued secondary to completion of protocol. Impression: 1. Pharmacologic (Regadenoson) evaluation 2. Peak pharmacologic ECG with no obvious ECG changes. 3. There was an occasional PVC during recovery. 4. Nuclear images pending Myocardial perfusion imaging study: Technique: The patient was injected with 10.9 millicuries of technetium 99m Cardiolite and subsequently rest SPECT Cardiolite nuclear imaging was obtained in the horizontal long, vertical long, and short axis views. The patient underwent pharmacologic (Regadenoson) evaluation with a peak heart rate of 104 beats per minute (65 % percent predicted maximal heart rate) and a peak blood pressure of 130/72 mmHg. The patient was injected with 31.6 millicuries of technetium 99m Cardiolite and subsequently stress SPECT Cardiolite nuclear imaging was obtained in the horizontal long, vertical long, and short axis views. A gated Cardiolite study at peak stress was obtained. Interpretation: Rest and stress SPECT Cardiolite nuclear imaging status post realignment, normalization, and attenuation correction demonstrate a small area of subtle diminished tracer uptake near the apical segments that appear to be somewhat more prominent at rest as opposed to stress but otherwise without significant change. There is end systolic thickening and brightening. The gated Cardiolite study demonstrates myocardial thickening and inward wall motion. The reported LVEF is 57 %. Impression: 1. Rest and stress SPECT currently nuclear imaging demonstrate a small area of subtle diminished tracer uptake near the apical segments that appear to be somewhat more prominent at rest as opposed to stress but otherwise without significant change appearing compatible shifting soft tissue attenuation/artifact with no myocardial perfusion changes considered diagnostic for associated stress-induced myocardial ischemia. 2. The gated Cardiolite study reports an LVEF of 57 %. This note was generated with Sinchation software. It may contain incorrect words, spelling, and punctuation that were not noted in checking the note before signing. 03/13/18957 <Electronically signed by Gucci Clancy MD> Date Gucci Clancy MD CC: HELENE Randhawa Date Dictated: 03/13/18954 Date Transcribed: 03/13/18954 [employer]el[employer] Department Supervisor: PM Signed CARDIOLOGY VISIT Observed: 03/06/2018 Status: F Source: [facility] REPORT 2:19 PM [facility] REPOSITORY [facility] [address] [place] [address] OFFICE VISIT Date of Service: 03/06/18 MR#: [id number] Acct: [id number] Name: NICOLLE LEIGH Rep #: [id number] : 1955 Provider: HELENE Lujan Age/Sex: 62/F Location: [facility] [place] Status: Signed HPI HPI Details: NICOLLE LEIGH, is a 62 F who presents to the office today for a cardiovascular outpatient follow-up. She has a history of non CAD related cardiomyopathy, pulmonary hypertension, hypertension, diabetes mellitus, thyroid disorder, and hyperlipidemia. Pt. denies symptoms of near syncope, or syncopal episodes. Pt. denies claudication issues. Pt. denies PND, fever, chills, blood in urine, blood in stool, or myalgia. She states now using oxygen since last office visit in December 2059. She states this was due to low oxygen with exertion. She was diagnosed with COPD and asthma. She wears 3-5 liters of oxygen depending on activity. She states with exertion she notices an increase in palpitations with exertion. She states this is associated with SOB, chest tightness, and diaphoresis, and nausea. This improves with rest in a few minutes. She states noticing lightheadedness and dizziness with exertion and when bending forward. She states slightly worsening edema. She states a decrease in energy. Intake Vital Signs03/06/18 Height 5 ft 6 in 03/06/18 Weight: 218 lb 03/06/18 Body Mass Index (BMI) 35.2 03/06/18 Blood Pressure 148/86 H H 03/06/18 Blood Pressure Location Lt brachial 03/06/18 Blood Pressure Position Sitting Intake Visit Reasons: 1 Y FU Director Life Required: No Accompanied by: None Is patient in pain?: No Allergies No Known Allergies Allergy (Verified 03/06/18 09:46) Medications Albuterol Inhaler [Ventolin Hfa (SP)] 1 puff INHALATION PRN PRN 07/22/14 [History Confirmed 03/06/18] Aspirin [Aspirin, Baby] 81 mg PO DAILY@0800 07/22/14 [History Confirmed 03/06/18] Bilberry 125 mg PO DAILY 07/22/14 [History Confirmed 03/06/18] Biotin 1 mg PO DAILY 07/22/14 [History Confirmed 03/06/18] Celecoxib [Celebrex] 100 mg PO DAILY 07/22/14 [History Confirmed 03/06/18] Cinnamon 500 mg PO DAILY 07/22/14 [History Confirmed 03/06/18] Clobetasol Propionate/Emoll [Clobetasol Emollient 0.05% Crm] 30 gm TP UD 07/22/14 [History Confirmed 03/06/18] Doxepin HCl [Sinequan] 10 mg PO QHS 07/22/14 [History Confirmed 03/06/18] Garlic 400 mg PO DAILY 07/22/14 [History Confirmed 03/06/18] Insulin Glargine [Lantus SoloStar Pen] 0 units SC UD 07/22/14 [History Confirmed 03/06/18] Insulin Lispro [Humalog] 0 unit SC UD 07/22/14 [History Confirmed 03/06/18] Ipratropium/Albuterol Sulfate [Duoneb] 3 ml INHALATION PRN PRN 07/22/14 [History Confirmed 03/06/18] Lansoprazole [Prevacid] 30 mg PO DAILY 07/22/14 [History Confirmed 03/06/18] Levothyroxine Sodium [Levoxyl] 150 mcg PO DAILY 07/22/14 [History Confirmed 03/06/18] Mometasone Furoate [Nasonex] 1 spray NASAL UD 07/22/14 [History Confirmed 03/06/18] Montelukast [Singulair] 10 mg PO DAILY 07/22/14 [History Confirmed 03/06/18] Multivitamins,Therapeutic [Multivitamin] 1 tab PO DAILY 07/22/14 [History Confirmed 03/06/18] Oxygen, Home [Home Oxygen] 2 lpm NASAL QHS 07/22/14 [History Confirmed 03/06/18] Triamcinolone Acetonide 15 gm TP UD 07/22/14 [History Confirmed 03/06/18] ferrous sulfate 325 mg (65 mg iron) tablet 325 mg PO ONCE tab 04/09/17 [History Confirmed 03/06/18] cholecalciferol (vitamin D3) 1,000 unit tablet 2,000 unit PO .COMPLEX 04/11/17 [History Confirmed 03/06/18] hydrochlorothiazide 12.5 mg tablet 12.5 mg PO DAILY #90 tab 01/03/18 [Rx Confirmed 03/06/18] carvedilol 12.5 mg tablet 12.5 mg PO BID #180 tab 03/06/18 [Rx Confirmed 03/06/18] desoximetasone 0.25 % topical cream 1 applic TOPICAL BID 03/06/18 [History Confirmed 03/06/18] finasteride 5 mg tablet 2.5 mg PO DAILY tab 03/06/18 [History Confirmed 03/06/18] fluticasone 100 mcg-umeclid 62.5 mcg-vilant 25 mcg powd for inhalation 1 inh INHALATION DAILY 03/06/18 [History Confirmed 03/06/18] furosemide 40 mg tablet 40 mg PO BID #180 tab 03/06/18 [Rx Confirmed 03/06/18] losartan 50 mg-hydrochlorothiazide 12.5 mg tablet 1 tab PO BID #180 tab 03/06/18 [Rx Confirmed 03/06/18] Ejection fraction %: 50 to 54 PFSH Medical History Mixed hyperlipidemia (Chronic) Non-ischemic cardiomyopathy (Chronic) Atherosclerosis of [place] coronary artery of [place] heart without angina pectoris (Chronic) Benign essential HTN (Chronic) COLD (chronic obstructive lung disease) (Chronic) DM2 (diabetes mellitus, type 2) (Chronic) GERD (gastroesophageal reflux disease) (Chronic) ANTOINE (obstructive sleep apnea) (Chronic) Osteoarthritis (Chronic) Papillary thyroid carcinoma (Chronic) Pulmonary HTN (Chronic) Cancer of thyroid (Chronic) Fibromyalgia (Chronic) Surgical History H/O thyroidectomy (Resolved) H/O: hysterectomy (Resolved) History of cholecystectomy (Resolved) History of lumpectomy of left breast (Resolved) History of tonsillectomy (Resolved) Family History Mother , Pacemaker CAD (coronary artery disease) Father , Pacemaker/defibrillator CAD (coronary artery disease) CVA (cerebral vascular accident) Brother CAD (coronary artery disease) Social History Smoking Status: Former smoker how long ago did patient quit smokin years ago alcohol intake: never caffeine: Yes Type: coffee Number of servings: 3 ROS Const Const: Positive for fatigue; negative for weakness, weight gain, weight loss, frequent falls or excessive sweating Eyes Eyes: Negative for change in vision, blurry vision or transient loss of vision ENT ENT: Positive for dizziness (occasional dizziness; HX vertigo); negative for balance problems Cardio Chest Pain: Yes Edema: Bilateral (Patient reports swelling to bilat LE LT>RT) Muscle aches with walking: None Resp Respiratory: Positive for SOB with activity (Patient reports slinght increased SOB w/activity, patient reports that when she lifts things with arms she notes SOB) and wheezing (Patient reports productive cough w/white/yellow sputum production); negative for SOB at rest, SOB orthopnea\SOB lying down or paroxysmal nocturnal dyspnea GI GI: Positive for nausea; negative vomiting or vomiting blood/hematemesis : Negative for hematuria Musc Musc: Negative for balance problems Skin Skin: Negative non-healing lesions or rash Neuro Neuro: Positive for dizziness (occasional dizziness; HX vertigo) and lightheadedness; negative for weakness, frequent falls, blurry vision, near syncope or syncope Ramon Hematologic/Lymphatic: Negative for easy bleeding Endo Endo: Positive for fatigue; negative for excessive sweating Psych Psych: Negative for anxiety or depression Allergy Allergy/Immunology: Negative for rash Cardiology Exam Const Appearance: cooperative, healthy appearing and no acute distress Nutritional Appearance: obese Orientation: alert, awake, oriented x3 and oriented to person Head Head: normal to inspection Ears: hearing grossly normal bilaterally Nose: external nose normal Face and Sinus: face symmetric Mouth: oral mucosae normal Eyes General: appearance normal, both eyes and all related structures Pupils: PERRL EOM: EOM intact bilaterally Neck Neck: normal visual inspection Carotids: normal carotid upstroke Chest Chest inspection: normal inspection of the chest, symmetric chest movement and normal respiratory effort Auscultation: Bilateral: Clear to Auscultation Cardio Palpation: normal PMI Rate: regular rate Rhythm: regular rhythm Heart sounds: S1 normal, S2 normal and positive S4; negative rub, murmur or gallop GI GI: normal to inspection and obese Neuro General: alert, awake, oriented x3 and oriented to Skin Skin: no rashes or lesions noted Extremities Pulses: Normal: Right Posterior Tibial Pulse, Left Posterior Tibial Pulse, Right Radial Pulse, Left Radial Pulse Lower Extremity Edema: Trace: Bilateral Psych Psychological: normal affect Supplemental Info Echocardiogram from April 2017 showed estimated ejection fraction of 50%, trivial mitral valve insufficiency, trivial tricuspid valve insufficiency, mild pulmonic valve insufficiency, and unable to calculated RVSP and diastolic dysfunction. Stress test from July 2014 showed peak ECG with no obvious ECG changes and nuclear images showed an area of myocardial ischemia involving portions of the anteroapical/lateral apical segments could not necessarily be excluded with ejection fraction 57%. Heart catheterization in July 2014 showed an ejection fraction of 55%, elevated LVEDP, mildly elevated intrapulmonary and right heart pressures, left main as angiographically normal, LAD as angiographically normal, LCx as angiographically normal, RCA there is a large dominant vessel with right AV segment having minimal luminal irregularities. Assessment AND Plan 1. Chest pain, unspecified type R07.9 Plan Patient states chest tightness on exertion associated with shortness of breath, diaphoresis, nausea, and palpitations. She will undergo further evaluation with a nuclear stress test. Her last stress test in July 2014 cannot exclude myocardial ischemia. Her heart catheterization July 2014 showed ejection fraction 55% and angiographically normal coronary artery disease except minimal luminal irregularities in the right AV segment. Further recommendation will be made based on results of her test. 2. Non-ischemic cardiomyopathy I42.8 Plan Her echocardiogram April 2017 showed ejection fraction of 50% and was unable to calculate RVSP or diastolic dysfunction. Due to previous history of COPD and previous history of elevated intrapulmonary noted on heart catheterization in July 2014, she was asked to temporarily increase her Lasix to 40 mg twice daily. Orders Orders: 3. Benign essential HTN I10 Plan Her blood pressure is slightly elevated today in office. If this does not improve with diuretic further consideration for addition of isosorbide or Norvasc will be made to help with afterload reduction. We will reassess this at her next office appointment in approximately 1 month. Orders Orders: 4. Mixed hyperlipidemia E78.2 Plan Her overall cholesterol shows elevated LDL level. She was asked to continue follow-up with primary care physician for this. She is not on any cholesterol lowering medication. Orders Orders: Plan Detail Other Medications Changed: Refilled: Additional Comments Thank you for allowing us to participate in the patient's plan of care, if you have any questions please do not hesitate to call. This note was generated using a voice recognition system and there may be incorrect words, spelling, or punctuation that were not noted upon reviewing the office note prior to saving. Follow Up 12 Months (PFM) 1 Month ([facility]) Coding Level of Care Code Off vis,est,level 4 Diagnoses Chest pain, unspecified type R07.9 Chest pain type: unspecified Non-ischemic cardiomyopathy I42.8 Benign essential HTN I10 Mixed hyperlipidemia E78.2 Coding Level of Care Code Off vis,est,level 4 Diagnoses Chest pain, unspecified type R07.9 Chest pain type: unspecified Non-ischemic cardiomyopathy I42.8 Benign essential HTN I10 Mixed hyperlipidemia E78.2 03/06/18 1419 <Electronically signed by River MORTON> Date River CHOPRAC Cosigner Signature: Date (if applicable) CC: Dawn Randhawa PROCEDURE Observed: 01/31/2018 Status: COMPLETED Source: [place] 12:18 PM [facility] REPOSITORY HNO ID: [id number] Author: Harvinder Rodriguez Service: (none) Author Type: Physician Type: Procedures Filed: 01/31/2018 12:19 PM Note Text: Thyroid / Neck Ultrasound Findings: no suspicious adenopathy along great vessels or in lateral neck on either side. No masses in thyroid bed. Impression benign study Recommendation: followup ultrasound in 1 year Harvinder Rodriguez MD Clinical Issues Reason for the study: followup of thyroid CA Comparison: none Technical Issues Equipment: [employer]oka Prosound Alpha 6 Transducer: Linear/Trapezoidal multifrequency Regions examined: Neck, Sagittal and transverse views were obtained. Color power Doppler were applied when indicated. PROGRESS Observed: 01/31/2018 Status: COMPLETED Source: [place] 12:06 PM [facility] REPOSITORY HNO ID: [id number] Author: Harvinder Rodriguez Service: (none) Author Type: Physician Type: Progress Notes Filed: 01/31/2018 12:19 PM Note Text: Assessment / Plan Problem: 1) Thyroid CA, 2cm max diameter on left, classical papillary primary tumor, 0.1cm follicular on right, no node involvement (none submitted at surgery, no suspicious nodes on ultrasound including today). TG is staying low. Thus no evidence for concern, will continue following, at this point yearly. 2) Surgical hypothyroidism, TSH in normal range now, I will have her continue on this dose of levothyroxine. Plan: 1) stay on the same dose of levothyroxine 2) return to me in 1 year, with labs before visit. Harvinedr Rodriguez MD Data Review: thyroid CA data reviewed below Component Latest Ref Rng AND Units 10/08/2016 11/02/2017 Thyroglobulin 1.6 - 59.9 ng/mL 0.4 (L) 0.4 (L) TG Antibody Screen <14.4 IU/mL 1.3 1.4 Free T4 0.9 - 1.7 ng/dL 1.6 1.7 TSH 0.400 - 5.500 uU/mL 1.220 1.380 History Problem name: thyroid CA Location: bilateral Quality: classical papillary for dominant tumor on left, follicular on right Severity: 2cm max diameter on left, 0.1cm on right Duration: resected 2011 Context: no FHx thyroid CA, no hx XRtherapy to head/neck Modifying factors: levothyroxine 150 mcg daily Thyroid CA History Surgery (11/20/11): total thyroidectomy Dr. Rasta Tierney Pathology (11/20/11): classical papillary thyroid CA, 2 x 1.5 x 1cm diameter, left lobe, no extrathyroidal extension, second focus on right 0.1cm, follicular variant, no extrathyroidal extension. No nodes submitted. Scan (01/13/15): no scan done RITCHIE (01/13/15): no RITCHIE done Thyroglobulin Component Thyroglobulin TG Antibody Screen TSH Latest Ref Rng AND Units 1.6 - 59.9 ng/mL <14.4 IU/mL 0.400 - 5.500 uU/mL 01/08/2012 2.8 1.6 14.800 (H) 07/07/2012 1.0 <1.0 0.816 05/14/2013 1.2 <1.0 1.440 06/10/2014 0.4 (L) 1.0 1.410 07/14/2015 0.7 (L) <1.0 0.242 (L) 02/14/2016 1.8 1.1 1.830 10/08/2016 0.4 (L) 1.3 1.220 11/02/2017 0.4 (L) 1.4 1.380 Vitamin D Component Vitamin D 25 Hydroxy Latest Ref Rng 31.0 - 80.0 ng/mL 01/08/2012 29.1 (L) 07/07/2012 59.4 Ultrasound (01/13/15): no suspicious adenopathy along great vessels or in lateral neck on either side. No masses in thyroid bed. ROS Constit: negative for weight change in last year ENT: positive for intermittent hoarseness, CV:negative for palpitations GI: negative for diarrhea PHYSICAL EXAM BP 134/58 Pulse 78 Wt 100.3 kg (221 lb 3.2 oz) BMI 35.70 kg/m? PAST MEDICAL HISTORY PAST MEDICAL HISTORY Diagnosis Date - Allergic rhinitis - Calculus of gallbladder without mention of cholecystitis or obstruction 07/15/13 - Cardiomyopathy (HCC) - Chest pain - COPD (chronic obstructive pulmonary disease) (HCC) - DDD (degenerative disc disease) - Diabetes mellitus (HCC) - Fatigue - Fibromyalgia - GERD (gastroesophageal reflux disease) - Hayfever - Heart disease - HTN (hypertension) - IBS (irritable bowel syndrome) - Kidney stones - Obesity - Other specified disorder of gallbladder 07/15/13 - Papillary thyroid carcinoma (HCC) - Pulmonary hypertension (HCC) - Shingles 2012 - Sleep apnea PAST SURGICAL HISTORY PAST SURGICAL HISTORY Procedure Laterality Date - COLONOSCOP W/ OR W/O BRSH SPEC 05/07/13 Colonoscopy - EGD W/O OR W/BRUSH/WASH 02/18/14 EGD - HEART CATHETERIZATION 06/07/11 - KNEE SCOPE,DIAGNOSTIC 1986 Arthroscopy, knee lt x2 - LAPAROSCOPIC CHOLEYCYSTECTOMY 07/15/13 - LUMPECTOMY/RADIOTHERAPY DIAG MAMM/A10 2004 lt breast - PAST SURGICAL HISTORY OF 1995 laparoscopic hysterectomy with bladder lift, and BSO - REMOVE TONSILS/ADENOIDS,<12 Y/O 1969 - THYROIDECTOMY 11/20/11 Total thyroid FAMILY HISTORY FAMILY HISTORY Problem Relation Age of Onset - Heart Mother - Heart Father - Heart Brother - Diabetes Mother - Diabetes Brother - Hypertension Mother - Hypertension Father - Hypertension Brother - Kidney Disease Mother - Kidney Disease Brother - Stroke Mother - Stroke Father - Cancer Mother uterine SOCIAL HISTORY SOCIAL HISTORY Employer And Job Title: [employer] Marital Status: with 1 child Tobacco Use: Quit (has not smoked for past 25 years) Alcohol Use: No Drug Use: No Sexual Activity: Patient is not sexually active MEDICATIONS Prior to Admission Medications: Current Outpatient Prescriptions on File Prior to Visit: levothyroxine (SYNTHROID) 150 mcg tablet Take 1 tablet by mouth once daily. Take 2 pills on Sundays. insulin glargine (LANTUS SOLOSTAR) 100 unit/mL (3 mL) inpn 25 units sc qam, 125 units sc qhs. gabapentin (NEURONTIN) 100 mg capsule Take 200 mg by mouth three times daily. fluticasone-salmeterol HFA (ADVAIR HFA) 230-21 mcg/actuation inhaler Inhale 2 Puffs as instructed twice daily. INSULIN LISPRO (HUMALOG KWIKPEN SUBCUTANEOUS) Inject subcutaneously. 40 units at breakfast and lunch and 50 units at supper mometasone (NASONEX) 50 mcg/actuation nasal spray Use 2 Sprays in the nose once daily. albuterol HFA (VENTOLIN HFA) 90 mcg/actuation inhaler Inhale 2 Puffs as instructed. LORATADINE (CLARITIN ORAL) Take by mouth once daily. lansoprazole (PREVACID) 30 mg capsule Take 1 capsule by mouth twice daily. CARVEDILOL 12.5 mg tablet HYDROcodone-acetaminophen 5-325 mg per tablet 1 to 2 tabs po q 4 prn acetaminophen (TYLENOL EXTRA STRENGTH) 500 mg tablet Take 1,000 mg by mouth every 8 hours as needed. spironolactone (ALDACTONE) 25 mg tablet Take 25 mg by mouth once daily. triamcinolone acetonide 0.1 % cream Apply to affected area twice daily. Clobetasol Propionate 0.05 % topical foam Apply to affected area twice daily. Biotin 1 mg tab Take 1 tablet by mouth. CINNAMON BARK (CINNAMON ORAL) Take by mouth. MAR OIL ORAL Take by mouth. Cholecalciferol, Vitamin D3, (VITAMIN D) 1,000 unit tab Take 1,000 Units by mouth once daily. Ferrous Sulfate (IRON, FERROUS SULFATE,) 325 mg (65 mg iron) tablet Take 325 mg by mouth daily with breakfast. potassium chloride (KLOR-CON 10) 10 mEq tablet Take 1 tablet by mouth once daily. As needed doxepin 50 mg capsule Take 1 capsule by mouth daily at bedtime. traMADol 50 mg tablet Take 1 tablet by mouth every 6 hours as needed. montelukast (SINGULAIR) 10 mg tablet Take 10 mg by mouth daily at bedtime. Valsartan-Hydrochlorothiazide (DIOVAN HCT) 160-25 mg per tablet Take 1 tablet by mouth twice daily. furosemide (LASIX) 40 mg tablet Take 1 tablet by mouth once daily. multivitamin tablet Take 1 tablet by mouth once daily. COMPOUNDED PRESCRIPTION Oxygen for night time use due to sleep apnea aspirin, enteric coated 81 mg EC tablet Take 1 tablet by mouth once daily. celecoxib (CELEBREX) 200 mg capsule Take 100 mg by mouth as directed. No current facility-administered medications on file prior to visit. ALLERGIES Review of patient's allergies indicates: Seasonal Allergies Other: See Comments Comment:Dustm, mold, smoke CNOV Observed: 01/31/2018 Status: COMPLETED Source: [place] 10:45 AM [facility] REPOSITORY Office Visit (ENDLKW) NICOLLE LEIGH ([id number]) 1955 F Date Time Provider Department 01/31/18 10:45 AM HARVINDER RODRIGUEZ During your visit today, we recorded the following information about you: Pulse Blood pressure Weight 78/minute 134/58 100.3 kg Harvinder Rodriguez MD 01/31/2018 12:19 PM Signed Assessment / Plan Problem: 1) Thyroid CA, 2cm max diameter on left, classical papillary primary tumor, 0.1cm follicular on right, no node involvement (none submitted at surgery, no suspicious nodes on ultrasound including today). TG is staying low. Thus no evidence for concern, will continue following, at this point yearly. 2) Surgical hypothyroidism, TSH in normal range now, I will have her continue on this dose of levothyroxine. Plan: 1) stay on the same dose of levothyroxine 2) return to me in 1 year, with labs before visit. Harvinder Rodriguez MD Data Review: thyroid CA data reviewed below Component Latest Ref Rng AND Units 10/08/2016 11/02/2017 Thyroglobulin 1.6 - 59.9 ng/mL 0.4 (L) 0.4 (L) TG Antibody Screen <14.4 IU/mL 1.3 1.4 Free T4 0.9 - 1.7 ng/dL 1.6 1.7 TSH 0.400 - 5.500 uU/mL 1.220 1.380 History Problem name: thyroid CA Location: bilateral Quality: classical papillary for dominant tumor on left, follicular on right Severity: 2cm max diameter on left, 0.1cm on right Duration: resected 2011 Context: no FHx thyroid CA, no hx XRtherapy to head/neck Modifying factors: levothyroxine 150 mcg daily Thyroid CA History Surgery (11/20/11): total thyroidectomy Dr. Rasta Tierney Pathology (11/20/11): classical papillary thyroid CA, 2 x 1.5 x 1cm diameter, left lobe, no extrathyroidal extension, second focus on right 0.1cm, follicular variant, no extrathyroidal extension. No nodes submitted. Scan (01/13/15): no scan done RITCHIE (01/13/15): no RITCHIE done Thyroglobulin Component Thyroglobulin TG Antibody Screen TSH Latest Ref Rng AND Units 1.6 - 59.9 ng/mL <14.4 IU/mL 0.400 - 5.500 uU/mL 01/08/2012 2.8 1.6 14.800 (H) 07/07/2012 1.0 <1.0 0.816 05/14/2013 1.2 <1.0 1.440 06/10/2014 0.4 (L) 1.0 1.410 07/14/2015 0.7 (L) <1.0 0.242 (L) 02/14/2016 1.8 1.1 1.830 10/08/2016 0.4 (L) 1.3 1.220 11/02/2017 0.4 (L) 1.4 1.380 Vitamin D Component Vitamin D 25 Hydroxy Latest Ref Rng 31.0 - 80.0 ng/mL 01/08/2012 29.1 (L) 07/07/2012 59.4 Ultrasound (01/13/15): no suspicious adenopathy along great vessels or in lateral neck on either side. No masses in thyroid bed. ROS Constit: negative for weight change in last year ENT: positive for intermittent hoarseness, CV:negative for palpitations GI: negative for diarrhea PHYSICAL EXAM BP 134/58 Pulse 78 Wt 100.3 kg (221 lb 3.2 oz) BMI 35.70 kg/m? PAST MEDICAL HISTORY PAST MEDICAL HISTORY Diagnosis Date - Allergic rhinitis - Calculus of gallbladder without mention of cholecystitis or obstruction 07/15/13 - Cardiomyopathy (HCC) - Chest pain - COPD (chronic obstructive pulmonary disease) (HCC) - DDD (degenerative disc disease) - Diabetes mellitus (HCC) - Fatigue - Fibromyalgia - GERD (gastroesophageal reflux disease) - Hayfever - Heart disease - HTN (hypertension) - IBS (irritable bowel syndrome) - Kidney stones - Obesity - Other specified disorder of gallbladder 07/15/13 - Papillary thyroid carcinoma (HCC) - Pulmonary hypertension (HCC) - Shingles 2012 - Sleep apnea PAST SURGICAL HISTORY PAST SURGICAL HISTORY Procedure Laterality Date - COLONOSCOP W/ OR W/O BRSH SPEC 05/07/13 Colonoscopy - EGD W/O OR W/BRUSH/WASH 02/18/14 EGD - HEART CATHETERIZATION 06/07/11 - KNEE SCOPE,DIAGNOSTIC 1986 Arthroscopy, knee lt x2 - LAPAROSCOPIC CHOLEYCYSTECTOMY 07/15/13 - LUMPECTOMY/RADIOTHERAPY DIAG MAMM/A10 2003 lt breast - PAST SURGICAL HISTORY OF 1995 laparoscopic hysterectomy with bladder lift, and BSO - REMOVE TONSILS/ADENOIDS,<13 Y/O 1968 - THYROIDECTOMY 11/20/11 Total thyroid FAMILY HISTORY FAMILY HISTORY Problem Relation Age of Onset - Heart Mother - Heart Father - Heart Brother - Diabetes Mother - Diabetes Brother - Hypertension Mother - Hypertension Father - Hypertension Brother - Kidney Disease Mother - Kidney Disease Brother - Stroke Mother - Stroke Father - Cancer Mother uterine SOCIAL HISTORY SOCIAL HISTORY Employer And Job Title: [employer]) Marital Status: with 1 child Tobacco Use: Quit (has not smoked for past 25 years) Alcohol Use: No Drug Use: No Sexual Activity: Patient is not sexually active MEDICATIONS Prior to Admission Medications: Current Outpatient Prescriptions on File Prior to Visit: levothyroxine (SYNTHROID) 150 mcg tablet Take 1 tablet by mouth once daily. Take 2 pills on Sundays. insulin glargine (LANTUS SOLOSTAR) 100 unit/mL (3 mL) inpn 25 units sc qam, 125 units sc qhs. gabapentin (NEURONTIN) 100 mg capsule Take 200 mg by mouth three times daily. fluticasone-salmeterol HFA (ADVAIR HFA) 230-21 mcg/actuation inhaler Inhale 2 Puffs as instructed twice daily. INSULIN LISPRO (HUMALOG KWIKPEN SUBCUTANEOUS) Inject subcutaneously. 40 units at breakfast and lunch and 50 units at supper mometasone (NASONEX) 50 mcg/actuation nasal spray Use 2 Sprays in the nose once daily. albuterol HFA (VENTOLIN HFA) 90 mcg/actuation inhaler Inhale 2 Puffs as instructed. LORATADINE (CLARITIN ORAL) Take by mouth once daily. lansoprazole (PREVACID) 30 mg capsule Take 1 capsule by mouth twice daily. CARVEDILOL 12.5 mg tablet HYDROcodone-acetaminophen 5-325 mg per tablet 1 to 2 tabs po q 4 prn acetaminophen (TYLENOL EXTRA STRENGTH) 500 mg tablet Take 1,000 mg by mouth every 8 hours as needed. spironolactone (ALDACTONE) 25 mg tablet Take 25 mg by mouth once daily. triamcinolone acetonide 0.1 % cream Apply to affected area twice daily. Clobetasol Propionate 0.05 % topical foam Apply to affected area twice daily. Biotin 1 mg tab Take 1 tablet by mouth. CINNAMON BARK (CINNAMON ORAL) Take by mouth. MAR OIL ORAL Take by mouth. Cholecalciferol, Vitamin D3, (VITAMIN D) 1,000 unit tab Take 1,000 Units by mouth once daily. Ferrous Sulfate (IRON, FERROUS SULFATE,) 325 mg (65 mg iron) tablet Take 325 mg by mouth daily with breakfast. potassium chloride (KLOR-CON 10) 10 mEq tablet Take 1 tablet by mouth once daily. As needed doxepin 50 mg capsule Take 1 capsule by mouth daily at bedtime. traMADol 50 mg tablet Take 1 tablet by mouth every 6 hours as needed. montelukast (SINGULAIR) 10 mg tablet Take 10 mg by mouth daily at bedtime. Valsartan-Hydrochlorothiazide (DIOVAN HCT) 160-25 mg per tablet Take 1 tablet by mouth twice daily. furosemide (LASIX) 40 mg tablet Take 1 tablet by mouth once daily. multivitamin tablet Take 1 tablet by mouth once daily. COMPOUNDED PRESCRIPTION Oxygen for night time use due to sleep apnea aspirin, enteric coated 81 mg EC tablet Take 1 tablet by mouth once daily. celecoxib (CELEBREX) 200 mg capsule Take 100 mg by mouth as directed. No current facility-administered medications on file prior to visit. ALLERGIES Review of patient's allergies indicates: Seasonal Allergies Other: See Comments Comment:Dustm, mold, smoke Harvinder Rodriguez MD 01/31/2018 12:19 PM Signed Thyroid / Neck Ultrasound Findings: no suspicious adenopathy along great vessels or in lateral neck on either side. No masses in thyroid bed. Impression benign study Recommendation: followup ultrasound in 1 year Harvinder Rodriguez MD Clinical Issues Reason for the study: followup of thyroid CA Comparison: none Technical Issues Equipment: Aloka Prosound Alpha 6 Transducer: Linear/Trapezoidal multifrequency Regions examined: Neck, Sagittal and transverse views were obtained. Color power Doppler were applied when indicated. Harvinder Rodriguez MD 01/31/2018 12:19 PM Signed Assessment / Plan Problem: 1) Thyroid CA, 2cm max diameter on left, classical papillary primary tumor, 0.1cm follicular on right, no node involvement (none submitted at surgery, no suspicious nodes on ultrasound including today). TG is staying low. Thus no evidence for concern, will continue following, at this point yearly. 2) Surgical hypothyroidism, TSH in normal range now, I will have her continue on this dose of levothyroxine. Plan: 1) stay on the same dose of levothyroxine 2) return to me in 1 year, with labs before visit. Harvinder Rodriguez MD Data Review: thyroid CA data reviewed below Component Latest Ref Rng AND Units 10/08/2016 11/02/2017 Thyroglobulin 1.6 - 59.9 ng/mL 0.4 (L) 0.4 (L) TG Antibody Screen <14.4 IU/mL 1.3 1.4 Free T4 0.9 - 1.7 ng/dL 1.6 1.7 TSH 0.400 - 5.500 uU/mL 1.220 1.380 Referring Provider: DAWN RANDHAWA [[id number]] Allergies As of Date: 01/31/2018 Noted Allergy Reaction SEASONAL ALLERGIES 01/08/2012 14 - Other: See Comments Comments: Dustm, mold, smoke Date Reviewed: 01/31/2018 Reviewed by: Monica Merchant MA - Fully Assessed Reason for Visit: Thyroid Problem [110] Cmt: ultrasound Primary Visit Diagnosis:Papillary thyroid carcinoma (HCC) [C73] Other Visit Diagnosis:Postsurgical hypothyroidism [E89.0] Order(s):US NECK (POC) ENDO USE ONLY [8764635] Order #: [id number]: 1 levothyroxine (SYNTHROID) 150 mcg tabletTake 1 tablet by mouth once daily. take 7 AND 1/2 pills per week (one a day, extra half pill on Saturday)Disp: 90 tabletRfl: 4 T4 FREE/FREE THYROX [SQFT4] Order #: [id number] FUTURE TSH BLD [SQTSH] Order #: [id number] FUTURE THYROGLOBULIN BLD [SQTG] Order #: [id number] FUTURE Prescriptions as of 01/31/2018 Sig: LEVOTHYROXINE 150 MCG TABLET Take 1 tablet by mouth once d* BREO ELLIPTA INHALATION Inhale as instructed. INCRUSE ELLIPTA INHALATION Inhale as instructed. INSULIN GLARGINE (U-100) 100 * 25 units sc qam, 125 units sc* GABAPENTIN 100 MG CAPSULE Take 200 mg by mouth three ti* HUMALOG KWIKPEN SUBCUTANEOUS Inject subcutaneously. 40 un* MOMETASONE 50 MCG/ACTUATION N* Use 2 Sprays in the nose once* ALBUTEROL SULFATE HFA 90 MCG/* Inhale 2 Puffs as instructed. CLARITIN ORAL Take by mouth once daily. LANSOPRAZOLE 30 MG CAPSULE,DE* Take 1 capsule by mouth twice* CARVEDILOL 12.5 MG TABLET HYDROCODONE 5 MG-ACETAMINOPHE* 1 to 2 tabs po q 4 prn ACETAMINOPHEN 500 MG TABLET Take 1,000 mg by mouth every * SPIRONOLACTONE 25 MG TABLET Take 25 mg by mouth once royal* TRIAMCINOLONE ACETONIDE 0.1 %* Apply to affected area twice* CLOBETASOL 0.05 % TOPICAL FOAM Apply to affected area twice* BIOTIN 1 MG TABLET Take 1 tablet by mouth. CINNAMON ORAL Take by mouth. MAR OIL ORAL Take by mouth. CHOLECALCIFEROL (VITAMIN D3) * Take 1,000 Units by mouth onc* FERROUS SULFATE 325 MG (65 MG* Take 325 mg by mouth daily wi* POTASSIUM CHLORIDE ER 10 MEQ * Take 1 tablet by mouth once d* DOXEPIN 50 MG CAPSULE Take 1 capsule by mouth daily* TRAMADOL 50 MG TABLET Take 1 tablet by mouth every * * MONTELUKAST 10 MG TABLET Take 10 mg by mouth daily at * * VALSARTAN 160 MG-HYDROCHLOROT* Take 1 tablet by mouth twice * * FUROSEMIDE 40 MG TABLET Take 1 tablet by mouth once d* * MULTIVITAMIN TABLET Take 1 tablet by mouth once d* * COMPOUNDED PRESCRIPTION Oxygen for night time use due* * ASPIRIN 81 MG TABLET,DELAYED * Take 1 tablet by mouth once d* * CELECOXIB 200 MG CAPSULE Take 100 mg by mouth as direc* Problem List As Of Date 01/31/2018 Noted Resolved Papillary thyroid carcinoma [C73] INVALID FOR* Type 2 diabetes mellitus INVALID FOR*05/14/2013 More... Hypertension [I10] INVALID FOR* Urge incontinence [N39.41] INVALID FOR* Postsurgical hypothyroidism [E89.0] INVALID FOR* Insulin long-term use [Z79.4] INVALID FOR* Type 2 diabetes mellitus (HCC) [E11.9] INVALID FOR* More... Menopause [Z78.0] INVALID FOR* Pulmonary hypertension (HCC) [I27.20] Heart disease [I51.9] Other instructions from your clinician: Assessment / Plan Problem: 1) Thyroid CA, 2cm max diameter on left, classical papillary primary tumor, 0.1cm follicular on right, no node involvement (none submitted at surgery, no suspicious nodes on ultrasound including today). TG is staying low. Thus no evidence for concern, will continue following, at this point yearly. 2) Surgical hypothyroidism, TSH in normal range now, I will have her continue on this dose of levothyroxine. Plan: 1) stay on the same dose of levothyroxine 2) return to me in 1 year, with labs before visit. Harvinder Rodriguez MD Data Review: thyroid CA data reviewed below Component Latest Ref Rng AND Units 10/08/2016 11/02/2017 Thyroglobulin 1.6 - 59.9 ng/mL 0.4 (L) 0.4 (L) TG Antibody Screen <14.4 IU/mL 1.3 1.4 Free T4 0.9 - 1.7 ng/dL 1.6 1.7 TSH 0.400 - 5.500 uU/mL 1.220 1.380 Prescriptions ordered this encounter Disp Refills Start End LEVOTHYROXINE 150 MCG TABLET 90 t* 4 01/31/2018 Route: ORAL Sig: Take 1 tablet by mouth once daily. take 7 AND 1/2 pills per week (one a day, extra half pill on Saturday) Medications Discontinued During This Encounter levothyroxine (SYNTHROID) 150 mcg ta* 90 t* 4 11/09/2016 01/31/2018 Route: ORAL Sig: Take 1 tablet by mouth once daily. take 7 AND 1/2 pills per week (one a day, extra half pill on Saturday) Disc: Reason for discontinue is not on file. Disposition: Return in about 1 year (around 01/31/2019) for thyroid CA. Follow-up and Disposition History Recorded Encounter Status:Closed by HARVINDER RODRIGUEZ MD on 01/31/18 FREE T4 Collected: 11/02/2017 Status: F Source: [place] 10:48 AM [facility] REPOSITORY TYPE CODE TESTS RESULT OUT OF RANGE REFERENCE UNITS LAB FT4 0.9-1.7 ng/dL Free T4 1.7 Performed By: #### FT4, TSH, TG #### [facility] [address] [place], [place] [address] TSH Collected: 11/02/2017 Status: F Source: [place] 10:48 AM [facility] REPOSITORY TYPE CODE TESTS RESULT OUT OF RANGE REFERENCE UNITS LAB TSH 0.400-5.500 uU/mL TSH 1.380 Performed By: #### FT4, TSH, TG #### [facility] [address] [place], [place] [address] THYROGLOBULIN Collected: 11/02/2017 Status: F Source: [place] 10:48 AM [facility] REPOSITORY TYPE CODE TESTS RESULT OUT OF REFERENCE UNITS RANGE LAB THYG 1.6-59.9 ng/mL Thyroglobulin Low 0.4 Result Comment: Test analyzed by the Siemens Immulite method LAB TGABS <14.4 IU/mL TG Antibody Screen 1.4 Performed By: #### FT4, TSH, TG #### [facility] [address] [place], [place] [address] CTA CHEST Observed: 08/27/2017 Status: C Source: [facility] 3:48 PM [facility] REPOSITORY Exam Date/Time: 08/27/2017 16:11 EDT Reason for Exam: ATYPICAL CP THYROID CA BRONCHIECTASIS;Chest pain Addendum Begin Addendum #1 COMPARISON should read: CT chest 11/12/2013, chest x-ray 05/15/2017. Compared to prior studies, there is minimal change other than resolution of previously noted pericardial thickening/fluid. Appearance of borderline cardiomegaly on current study is likely related to decreased inspiratory effort. FINAL REPORT Dictated: 08/28/2017 10:26 am Yemi Holbrook MD Signed (Electronic Signature): 08/28/2017 10:26 am Signed by: Yemi Holbrook MD Technologist: MLL Report EXAM: CTA CHEST CLINICAL STATEMENT: Chest and upper back pain. Chronic cough. History of thyroid cancer. COMPARISON: CT chest 05/15/2017. TECHNIQUE: CT angiography of the pulmonary arteries following the administration of 75 mL of Omnipaque 350 intravenous contrast. Coronal and sagittal MIP (maximum intensity projection) images were performed. Dose reduction techniques were achieved by using automated exposure control and/or adjustment of mA and/or kV according to patient size and/or use of iterative reconstruction technique. FINDINGS: CTA: The aorta and branch vessels are patent with a normal caliber. There is variant arch anatomy with a common origin of the brachiocephalic and left common carotid arteries. The central pulmonary arteries are patent with a normal caliber. No filling defects are identified to suggest pulmonary embolism. The heart is enlarged. No bowing of the intraventricular septum to suggest right heart strain. No pericardial effusion. CT: No enlarged mediastinal or hilar lymphadenopathy by CT criteria. Calcified Exam Date/Time: 08/27/2017 16:11 EDT Report nodes are noted in the right hilum. The esophagus is normal caliber. The trachea and central airways are patent. Dependent groundglass opacities and linear densities are consistent with atelectasis and low lung volumes. No dense airspace consolidation. A centrally calcified nodule is noted in the inferior right middle lobe consistent with a post inflammatory granuloma. Smaller calcified nodules are noted in the right lower lobe with adjacent linear opacity. No pneumothorax or pleural effusion. A small hiatal hernia is present. There is low-attenuation of the liver suggesting fatty deposition. Multiple calcifications in the spleen consistent with old granulomatous disease. Degenerative changes are noted in the spine. No acute osseous abnormalities. IMPRESSION: No evidence of pulmonary embolism, acute aortic pathology, or acute cardiopulmonary disease. Cardiomegaly. Evidence of remote granulomatous disease. Hiatal hernia. Suspected hepatic steatosis. FINAL REPORT Dictated: 08/27/2017 7:13 pm Yemi Holbrook MD Signed (Electronic Signature): 08/27/2017 7:13 pm Signed by: Yemi Holbrook MD Technologist: [facility] Report last revised on 08/28/2017 10:26 EDT by Yemi Holbrook MD D-DIMER Collected: 08/22/2017 Status: F Source: [facility] 8:24 AM [facility] REPOSITORY TYPE CODE TESTS RESULT OUT OF RANGE REFERENCE UNITS LAB [id number](LO <=0.50 mg/L FEU INC) Normal D-Dimer 0.50 Result Comment: Critical Result DIMER:0.50 Called to NICOLLE CASTELLON at: 10:08:35 by:CLIFFORD Read back by:NICOLLE CASTELLON Normal D Dimer level indicates no Deep Vein Thrombosis (DVT) or Pulmonary Embolism (PE). Elevated D Dimer level indicates additional studies and clinical assessments are indicated to conclude diagnosis of Deep Vein Thromobsis (DVT) or Pulmonary Embolism (PE). Performed By: #### [id number] #### [facility] Hemat[facility] Autom[facility] [employer]section [address] [place] [address] CARDIOLOGY VISIT Observed: 06/18/2017 Status: F Source: [place] REPORT 11:12 AM [facility] REPOSITORY [facility] [address] [place], [place] [address] OFFICE VISIT Date of Service: 04/11/17 MR#: [id number] Acct: [id number] Name: NICOLLE LEIGH Rep #: [id number] : 1955 Provider: Gucci Clancy MD Age/Sex: 62/F Location[place] [facility] [place] Status: Signed HPI 1 Y FU: Chief Complaint: Cardiomyopathy Details: NICOLLE LEIGH, is a 62 F who presents to the office today for for outpatient cardiovascular follow-up. As you recall she has+ concerns of an underlying non-CAD related cardiomyopathy, pulmonary hypertension, essential hypertension, CAD-minimal luminal irregularities, superimposed upon a history of underlying diabetes mellitus and an underlying thyroid disorder. As you recall she had undergone evaluation with diagnostic cardiac catheterization at [facility] on 07/23/2014. At that time she had elevated left ventricular end-diastolic pressure compatible with decreased diastolic compliance with the resting LVEDP of 20 mmHg, borderline to mildly elevated intrapulmonary and right heart pressures, the left ventricle was thought to be normal at that time with an estimated LVEF of 55%, the coronary anatomy was thought to be angiographically normal with respect to the left main coronary artery, LAD, and LCx. The RCA was thought to have minimal luminal irregularities. The recommendation was for continued medical management. Her last outpatient cardiovascular study was in January 2016. This was a transthoracic echocardiogram performed at [facility]. Her left ventricle demonstrated an estimated LVEF of 50%. Her right ventricle was mildly dilated and mildly globally dysfunctional, she had trivial MR/TR, mild WV, and her right- sided pressures were unable to be estimated at the time. She did have evidence of decreased diastolic compliance. She has remained on medical management. Since her last outpatient cardiovascular visit of December 29, 2015 she states she has remained without any significant change. She is not complaining of ongoing symptoms of classic angina pectoris nor has she had overt episodes of CHF or pulmonary edema. There has been no near syncope or syncope. She states she does have some element, with exertional activity as before, becoming somewhat short of breath and dyspneic. However she states she has noted no significant change compared to her previous evaluation or visit. She does have trace bilateral ankle edema. She states her primary care physician is following her lipid profile. Intake Vital Signs04/11/17 Height 5 ft 6 in 04/11/17 Weight: 221 lb 4 oz 04/11/17 Body Mass Index (BMI) 35.6 04/11/17 Blood Pressure 108/68 Intake Visit Reasons: 1 Y FU Allergies No Known Allergies Allergy (Verified 07/22/14 06:50) Medications Albuterol Inhaler [Ventolin Hfa (SP)] 1 puff INHALATION PRN PRN 07/22/14 [History Confirmed 04/11/17] Aspirin [Aspirin, Baby] 81 mg PO DAILY@0800 07/22/14 [History Confirmed 04/11/17] Bilberry 125 mg PO DAILY 07/22/14 [History Confirmed 04/11/17] Biotin 1 mg PO DAILY 07/22/14 [History Confirmed 04/11/17] Carvedilol [Coreg] 12.5 mg PO BID 07/22/14 [History Confirmed 04/11/17] Celecoxib [Celebrex] 100 mg PO DAILY 07/22/14 [History Confirmed 04/11/17] Cinnamon 500 mg PO DAILY 07/22/14 [History Confirmed 04/11/17] Clobetasol Propionate/Emoll [Clobetasol Emollient 0.05% Crm] 30 gm TP UD 07/22/14 [History Confirmed 04/11/17] Doxepin HCl [Sinequan] 10 mg PO QHS 07/22/14 [History Confirmed 04/11/17] Furosemide [Lasix] 40 mg PO DAILY 07/22/14 [History Confirmed 04/11/17] Garlic 400 mg PO DAILY 07/22/14 [History Confirmed 04/11/17] Insulin Glargine [Lantus SoloStar Pen] 0 units SC UD 07/22/14 [History Confirmed 04/11/17] Insulin Lispro [Humalog] 0 unit SC UD 07/22/14 [History Confirmed 04/11/17] Ipratropium/Albuterol Sulfate [Duoneb] 3 ml INHALATION PRN PRN 07/22/14 [History Confirmed 04/11/17] Lansoprazole [Prevacid] 30 mg PO DAILY 07/22/14 [History Confirmed 04/11/17] Levothyroxine Sodium [Levoxyl] 150 mcg PO DAILY 07/22/14 [History Confirmed 04/11/17] Mometasone Furoate [Nasonex] 1 spray NASAL UD 07/22/14 [History Confirmed 04/11/17] Montelukast [Singulair] 10 mg PO DAILY 07/22/14 [History Confirmed 04/11/17] Multivitamins,Therapeutic [Multivitamin] 1 tab PO DAILY 07/22/14 [History Confirmed 04/11/17] Oxygen, Home [Home Oxygen] 2 lpm NASAL QHS 07/22/14 [History Confirmed 04/11/17] Triamcinolone Acetonide 15 gm TP UD 07/22/14 [History Confirmed 04/11/17] Valsartan/Hydrochlorothiazide [Diovan Hct 160-25 MG Tablet] 1 tab PO BID 07/22/14 [History Confirmed 04/11/17] ferrous sulfate 325 mg (65 mg iron) tablet 325 mg PO ONCE tab 04/09/17 [History Confirmed 04/11/17] cholecalciferol (vitamin D3) 1,000 unit tablet 2,000 unit PO .COMPLEX 04/11/17 [History Confirmed 04/11/17] fluticasone furoate 100 mcg/actuation blister powder for inhalation 1 inh INHALATION Q24H 04/11/17 [History Confirmed 04/11/17] umeclidinium 62.5 mcg-vilanterol 25 mcg/actuation powdr for inhalation 1 inh INHALATION Q24H 04/11/17 [History Confirmed 04/11/17] PFSH Medical History Atherosclerotic heart disease of [place] coronary artery without angina pectoris (Chronic) Benign essential HTN (Chronic) Cardiomyopathy (Chronic) COLD (chronic obstructive lung disease) (Chronic) DM2 (diabetes mellitus, type 2) (Chronic) GERD (gastroesophageal reflux disease) (Chronic) ANTOINE (obstructive sleep apnea) (Chronic) Osteoarthritis (Chronic) Papillary thyroid carcinoma (Chronic) Pulmonary HTN (Chronic) Cancer of thyroid (Chronic) Fibromyalgia (Chronic) Irritable colon (Inactive) Surgical History H/O thyroidectomy (Resolved) H/O: hysterectomy (Resolved) History of cholecystectomy (Resolved) Family History Mother , Pacemaker CAD (coronary artery disease) Father , Pacemaker/defibrillator CAD (coronary artery disease) CVA (cerebral vascular accident) Brother CAD (coronary artery disease) Social History Smoking Status: Former smoker ROS Const Const: Negative fatigue, weakness, weight gain, weight loss, frequent falls or excessive sweating Eyes Eyes: Negative change in vision, blurry vision or transient loss of vision ENT ENT: dizziness (occasional dizziness; HX vertigo), Negative balance problems Cardio Chest Pain: No Palpitations: No Edema: None, Bilateral (Patient reports swelling to bilat LE LT>RT) Muscle aches with walking: Bilateral (Patient reports muscle aches to bilat LE) Resp Respiratory: SOB with activity (Patient reports slinght increased SOB w/activity, patient reports that when she lifts things with arms she notes SOB) and wheezing (Patient reports productive cough w/white/yellow sputum production); negative SOB at rest GI GI: Negative vomiting or vomiting blood/hematemesis : Negative hematuria Musc Musc: Negative balance problems, muscle aches/ myalgia, muscle weakness or joint pain Skin Skin: Negative non-healing lesions or rash Neuro Neuro: Negative weakness, Negative blurry vision, dizziness (occasional dizziness; HX vertigo), Negative lightheadedness, Negative frequent falls, Negative orthostatic symptoms, Negative near syncope, Negative syncope, vertigo Ramon Hematologic/Lymphatic: Negative easy bleeding Endo Endo: Negative fatigue or excessive sweating Psych Psych: Negative anxiety or depression Allergy Allergy/Immunology: Negative hives, Negative rash Cardiology Exam Const Appearance: cooperative Nutritional Appearance: average body habitus Orientation: alert, awake, oriented x3 and oriented to person Head Head: normal to inspection Ears: hearing grossly normal bilaterally Nose: external nose normal Face and Sinus: face symmetric Mouth: oral mucosae normal Eyes General: appearance normal, both eyes and all related structures Pupils: PERRL EOM: EOM intact bilaterally Neck Neck: normal visual inspection Carotids: normal carotid upstroke Chest Chest inspection: normal inspection of the chest and symmetric chest movement Auscultation: Bilateral: Clear to Auscultation Cardio Palpation: normal PMI Rate: regular rate Rhythm: regular rhythm Heart sounds: S1 normal, S2 normal and positive S4 GI GI: normal to inspection, bowel sounds present, soft and no hepatosplenomegaly Neuro General: alert, awake, oriented x3 and oriented to Skin Skin: no rashes or lesions noted Extremities Pulses: Normal: Right Radial Pulse, Left Radial Pulse Lower Extremity Edema: Trace: Bilateral Musculoskel Musculoskeletal: No joint tenderness, No joint redness, No joint warmth, No decreased ROM, No spinal deformity, No scoliosis, No lordosis Psych Psychological: normal affect Assessment AND Plan 1. Cardiomyopathy I42.9 Plan At the present time she appears to be without a significant change based upon her history or exam. It is unclear whether there has been a significant change with respect to her right or left ventricular size and systolic function compared to her previous noninvasive evaluation. Noting that there were concerns about her LVEF being borderline low and her right ventricle being mildly dilated and globally dysfunctional it was felt reasonable that she not only continue her medical therapy but have a follow-up transthoracic echocardiogram as well to reassess her status and help guide future evaluation and care. Orders Orders: 2. Pulmonary HTN I27.20 Plan Unfortunately during her most recent noninvasive study from January 2016 her right-sided pressures were unable to be estimated. It was felt reasonable that an attempt be made with a follow-up transthoracic echocardiogram to estimate these pressures to help guide further evaluation and care. Orders Orders: 3. Benign essential HTN I10 Plan She does have a history of essential hypertension. She will continue medical management. Orders Orders: 4. Atherosclerotic heart disease of [place] coronary artery without angina pectoris I25.10 Plan She does have a history of minimal luminal irregularities of the RCA. She does need to continue risk factor modification and medical management. She will have her lipids evaluated by her primary care physician. She should be considered for lipid-lowering therapy especially if her lipids are not under good control. Orders Orders: 5. Diabetes mellitus, type II E11.9 Plan She will continue follow-up by her primary care physician. Patient Instructions Thank you for allowing me to participate in the care of your patient. Please don't hesitate to call if any issues arise This note was generated using a voice recognition system and there may be incorrect words, spelling or punctuation that were not noted when reviewing the office note prior to saving. Plan Detail Follow Up 1 Year ([facility]) 06/18/17 1112 <Electronically signed by Gucci Clancy MD> Date Gucci Clancy MD Cosigner Signature: Date (if applicable) CC: KNEES BILAT STANDING Observed: 06/05/2017 Status: F Source: [facility] 1 VIEW ONLY 11:52 AM [facility] REPOSITORY Final Report Accession No: [id number] Performed: Jun 05 2017 11:52AM Examination: KNEES BILAT STANDING 1 VIEW ONLY KNEES BILAT STANDING 1 VIEW ONLY 06/05/2017 11:52 AM Indication: Pain Comparison: None Standing AP view of both knees. No acute fracture or malalignment. Mild osteophytosis in the left lateral compartment. Mild spurring of the tibial spines. No significant joint space loss. IMPRESSION: Mild arthritic changes. No acute osseous findings. Interpreting Physician: SOLO WIN M.D. Trans: n/a : cc: ALLERGIES ALLERGIES DATE TYPE / CODE NAME / CODE REACTION SEVERITY SOURCE Drug gabapentin/F006 feels loopy [place] 8 Allergy/878589337( 823281(RXNORM) Community SNOMED [facility]) Hospital Repository Drug No Known Unknown [place] 8 Allergy/063313443( Allergies/F[address]) 30445(RXNORM) Hospital Repository Miscellaneous OTHER Other [place] [address] Allergy/932275021( Three [address]) Repository Environ/741429576( SEASONAL OTHER: SEE C Frank [address]) ALLERGIES [facility] [place] Rep[facility] N[facility] UNSPECIFIED Three SN[address]) Repository Drug/663389062(SNO gabapentin foggy Religious MED [facility]) feeling/impaired [facility] Repository Drug/489874251(SNO No Known Religious MED CT) Allergies [facility] Repository Drug/940168787(SNO Nuts Religious MED CT) [facility] Repository Drug/427978438(SNO Neurontin loopy Religious MED CT) [facility] Repository ENCOUNTERS ENCOUNTERS ADMIT/DISCHARGE ACCOUNT NUMBER ADMITTING ENCOUNTER LOCATION SOURCE CLASS 05/22/2018 [id number] [facility] Repository 05/21/2018/05/21/[id number] ding:[facility] Repository IMRoom: Room 2 05/12/2018/05/12/19 [id number] Ambulatory Building:[place] [address] SPORTSMEDSTU Three MBO Repository 05/07/2018/05/07/[id number] ding:[facility] Repository IMRoom: Room 2 05/02/2018/05/02/20 [id number] [facility] ding:[facility] IO Repository 05/02/2018/05/02/20 [id number] [facility] Jun[place] [address] [facility] MDBuilding:[facility] owellRoom: Repository Waiting 05/02/2018 [id number] Ambulatory [address] [place] [address] Repository 04/18/2018 [id number] Ambulatory BMSBuilding: [facility] Repository 04/18/2018 [id number] Ambulatory [facility] ding:[facility] Repository 04/08/2018/04/08/20 [id number] Ambulatory BMSBuilding: [place] [facility] Repository 03/13/2018 [id number] Ambulatory [facility] ding:[facility] Repository 03/13/2018 [id number] Ambulatory BMSBuilding: [facility] Repository 03/06/2018/03/06/20 [id number] Ambulatory BMSBuilding: [place] [facility] Repository 02/17/2018/02/18/20 [id number] Ambulatory [place] [address] [place] [facility] MDBuilding:[facility] owellRoom: Repository Room 1 01/31/2018/02/04/20 [id number] Ambulatory [address] Repository 01/29/2018 [id number] [facility] Repository 01/27/2018/01/28/[id number] ding:[facility] Repository IMRoom: Room 4 01/13/2018/01/14/20 [id number] Ambulatory Building:[place] [address] SP[facility]TSMED[facility]U Three MBO Repository 11/19/2017/11/20/19 [id number] Ambulatory [place] [address] [place] [facility] MDBuilding:[facility] owellRoom: Repository Room 1 11/02/2017/11/03/19 [id number] Ambulatory [address] Repository 08/27/2017/08/28/[id number] ding:[facility] Repository 08/22/2017/08/23/19 [id number] [place], [address] ding:[place] Repository IMRoom: Room 3 08/22/2017/08/23/19 [id number] [place], Ambulatory Religious Religious 18 [facility] ding:[facility] DEP Repository 08/19/2017/08/20/19 [id number] Ambulatory Juno [address] MDBuilding:[facility] System owellRoom: Repository Waiting 08/09/2017/08/10/19 [id number] Ambulatory [address] MDBuilding:[facility] System owell Repository 08/09/2017/08/10/19 [id number] Ambulatory Building:[place] [address] ORTHOGLESSNE Three R Repository 07/11/2017/07/12/19 [id number] Ambulatory Building:[place] [address] ORTHOGLESSCA Three R Repository 06/06/2017 [id number] Ambulatory Building:[facility] ORTHOGLESSNE Three R Repository 06/05/[id number] Radha [facility] Repository 06/05/2017/06/05/19 [id number] Ambulatory Building:[place] [address] ORTHOGLESSNE Three R Repository 04/11/2017/04/11/20 [id number] Ambulatory BMSBuilding: [place] [facility] Repository PAYERS PAYERS ENCOUNTER GUARANTOR PAYER SUBSCRIBER SOURCE 05/22/2018 [id number] Primary NICOLLE Villegas [facility] : Insurance:WORKER'S LEISUREDOB: Three Repository N COMPPolicy Number: [id number] [id number] N [place], [address]Glm: 419) Date:3661-90-29[place] [address]Bok: [phone] (HP) 756235[place], [place] [address]WP: [phone]) (HP) [phone] () 05/22/2018 Secondary NICOLLE Villegas [facility] Insurance:WORKER'S LEISUREDOB: Three Repository COMPPolicy Number: [id number] N MIRANDA [place], Date:[address] [place] [address]Ulc: [address], [place] [address]WP: [phone]) (HP) [phone] (WP) 05/12/2018 [id number] [facility] : Insurance:WORKER'S LEISUREDOB: Three Repository N COMPPolicy Number: [id number] [address] [place], [place] [id number] N [place] [place], [address]Pzu: (419) Date:[address] [place] [address]Dvu: [phone] (HP) [address], [place] [address]WP: [phone]) (HP) [phone] (WP) 05/12/2018 [facility] Health Insurance:WORKER'S LEISUREDOB: Three Repository COMPPolicy Number: [id number] N [address] [place], Date:[address] [place] [address]Aws: [address], [place] [address]WP: [phone]) (HP) [phone] (WP) 05/02/2018 NICOLLE [facility] LEISUREDOB: Insurance:AnthemPolicy LEISUREDOB: Hospitals N Number: [id number] Repository [place] [id number] N [address] [place], [id number]: Date:Plan Name:Health [place] [id number]: (HP) (HP) 05/02/2018 [facility] Insurance:AnthemPolicy LEISUREDOB: Hospitals Number: [id number] Repository [id number] N [address] [place], e Date:Plan [place] [id number]: Name:Health (HP) 04/18/2018 [facility] NICOLLE Ann [id number] N Insurance:ANTHEMPolicy LEISUREDOB: [facility] [place] Number: [id number] Hospital [address]Wqk: (419) [id number] Repository [phone] () e Date:5125-11-50UF [address] [place] [address]GO: 04/18/2018 Secondary NOT GIVENUNK [place] Insurance:SELF PAY [facility] Number: Effective Repository Date:2018-04-18 04/18/2018 NICOLLE Villegas Primary NICOLLE Ann [id number] N Insurance:ANTHEMPolicy LEISUREDOB: [facility] [place] Number: [id number] Hospital [address]Vsn: (419) [id number] Repository [phone] () e Date:2724-20-51DO [address] [place] [address] 785[address]EH: 04/18/2018 Secondary NOT GIVENUNK [place] Insurance:SELF PAY [facility] Hospital Number: Effective Repository Date:2018-04-08 04/08/2018 NICOLLE Villegas Primary NICOLLE Ann [id number] N Insurance:ANTHEMPolicy LEISUREDOB: [facility] [place] Number: [id number] Hospital [address]Feb: (419) [id number] Repository [phone] () e Date:8007-34-51HG [address] [place] [address] 470[address]TG: 04/08/2018 Secondary NOT GIVENUNK [place] Insurance:SELF PAY [facility] Hospital Number: Effective Repository Date:2018-04-08 03/13/2018 NICOLLE Villegas Primary NICOLLE Ann [id number] N Insurance:ANTHEMPolicy LEISUREDOB: [facility] [place] Number: [id number] Hospital [address]61[address]Vkg: (419) [id number] Repository [phone] () e Date:6196-26-49TZ [address] [place] [address] 93324BR: 03/13/2018 Secondary NOT GIVENUNK [place] Insurance:SELF PAY [facility] Hospital Number: Effective Repository Date:2018-03-06 03/13/2018 NICOLLE Villegas Primary NICOLLE Ann [id number] N Insurance:ANTHEMPolicy LEISUREDOB: [facility] [place] Number: [id number] Hospital [address]Wqw: (419) [id number] Repository [phone] () e Date:3393-66-34TR [address] [place] [address] 37890VX: 03/13/2018 Secondary NOT GIVENUNK [place] Insurance:SELF PAY [facility] Hospital Number: Effective Repository Date:2018-03-13 03/06/2018 NICOLLE Villegas Primary NICOLLE Ann [id number] N Insurance:ANTHEMPolicy LEISUREDOB: [place] Number: [id number] Hospital [address]Uad: (419) [id number] Repository [phone] () e Date:1785-23-91FS [address] [place] [address]WF: 03/06/2018 Secondary NOT GIVENUNK [place] Insurance:SELF PAY [facility] Hospital Number: Effective Repository Date:2018-03-06 01/29/2018 [id number] [facility] NICOLLE Villegas [facility] : Insurance:WORKER'S LEISUREDOB: Three Repository N COMPPolicy Number: [id number] [place], [place] [id number] N [facility], [address]Mci: (419) Date:6828-96-07[address] [place] [address]Ked: [phone] (HP) [place]497[address]ZCAF[place], [place] [address]WP: [phone]) () [phone] () 01/29/2018 Secondary NICOLLE Villegas [facility] Insurance:WORKER'S LEISUREDOB: Three Repository COMPPolicy Number: [id number] N [address] [place], Date:[address] [place] [address]Vnb: [address], [place] [address]WP: ([phone]) (HP) [phone] (WP) 01/27/2018 NICOLLE Villegas Primary Insurance:1500 NICOLLE Villegas Religious LEISUREDOB: ANTHEMPolicy Number: LEISUREDOB: [facility] Health N Effective [id number] System [place] Date:2017-08-22 [address] [place], Repository [id number]: [id number] [place] 759[address]32[address]Wbr: Name:CD:[id number] O (HP) [address]YBIMNPF, [place] (HP)Tel: [phone]) [phone]: (WP) [phone] 01/13/2018 [id number] Primary NICOLLE Villegas [facility] : Insurance:WORKER'S LEISUREDOB: Three Repository N COMPPolicy Number: [id number] [facility] [place], [place] [id number] N [facility] [place], [address]Amw: (419) Date:[address] [place] [address]Ftl: [phone] (HP) [address], [place] ) [phone] [address]WP: ([phone]) (HP) [phone] (WP) 01/13/2018 Secondary NICOLLE Villegas [facility] Insurance:WORKER'S LEISUREDOB: Three Repository COMPPolicy Number: [id number] N [place] [place], Date:[address] [place] [address]Gwx: [address], [place] ) [phone] [address]WP: ([phone]) (HP) [phone] (WP) 11/19/2017 NICOLLE Villegas [facility] NICOLLE Duff LEISUREDOB: Insurance:ANTHEMPolicy LEISUREDOB: [facility] N Number: Effective [id number] System [facility] [place] Date:2017-08-19 [facility], Repository [id number]: 9320-07-53Gboh CT 514051088Rjq: Name:Blue CrossPO BOX (HP) 171763HQDNXTPNADIA MOLINA ()Tel: [phone]: (WP) [phone] 08/27/2017 NICOLLE Villegas Primary NICOLLE Duff LEISUREDOB: Insurance:ANTHEMPolicy LEISUREDOB: [facility] N Number: Effective [id number] System [facility] [place] Date:2017-08-19 [facility], Repository [id number]: [id number] CT 998135992Upr: Name:Boubacar DynamightyPO BOX (HP) NADIA GUTIERREZ ()Tel: [phone]: (WP) [phone] 08/22/2017 NICOLLE Nelly Primary Insurance:1500 NICOLLE Duff LEISUREDOB: ANTHEMPolicy Number: LEISUREDOB: [facility] N Effective [id number] System [facility] [place] Date:2017-04-25 [facility], Repository [id number]: 1383-73-70Imfy CT 509942094Jhd: Name:CD:[id number] O (HP) BOX NADIA GUTIERREZ ()Tel: [phone]) [phone]: (wp) [phone] 08/22/2017 NICOLLE Villegas Primary NICOLLE Duff LEISUREDOB: Insurance:ANTHEMPolicy LEISUREDOB: [facility] N Number: Effective [id number] System [place] Date:2017-08-19 [address], Repository [id number]: 8831-76-84Jyix [place] 68[address]32[address]Lai: Name:Boubacar Holt BOX (HP) 682065IXJGKKNNADIA MOLINA ()Tel: [phone]: (wp) [phone] 08/19/2017 NICOLLE Villegas Primary Insurance:1500 NICOLLE Villegas Religious LEISUREDOB: ANTHEMPolicy Number: LEISUREDOB: [facility] N Effective [id number] System [place] Date:2017-07-25 [address] [place], Repository [id number]: [id number] [place] 557[address]1325Jhs: Name:CD:[id number] O (HP) [address]HBXLGSYNADIA MOL[address] ()Tel: [phone]) [phone]: (WP) [phone] 08/09/2017 NICOLLE Primary Insurance:1500 NICOLLE Villegas Religious LEISUREDOB: ANTHEMPolicy Number: LEISUREDOB: [facility] N Effective [id number] System [place] Date:2017-02-08 [address] [place], Repository [id number]: 2614-08-41Suph CT 355334253Rsp: Name:CD:[id number] O (HP) [address]IFWNLOSNADIA MOL[address] ()Tel: [phone]) [phone]: (MP) [phone] 08/09/2017 [id number] Primary NICOLLE Villegas [facility] : Insurance:WORKER'S LEISUREDOB: Three Repository N COMPPolicy Number: [id number] [place], [place] [id number] N [place], [address]Woz: (419) Date:[address] [place] [address]Kzb: [phone] (HP) [address], [place] [address]KM: (888) (HP) [phone] (WP) 08/09/2017 Secondary NICOLLE [facility] Health Insurance:WORKER'S LEISUREDOB: Three Repository COMPPolicy Number: [id number] N [address] [place], Date:[address] [place] [address]Rdn: [address], [place] [phone] [address]WP: ([phone]) (HP) [phone] (WP) 07/11/2017 [id number] [facility] : Insurance:WORKER'S LEISUREDOB: Three Repository N COMPPolicy Number: [id number] [place] [place], [place] [id number] N [place], [address]Tzx: (419) Date:6500-00-08[address] [place] [address]Ngj: [phone] (HP) 5837[address]ZVNNHIDX, [place] (363) [phone] [address]WP: (888) (HP) [phone] (WP) 06/06/2017 [id number] [facility] Health : Insurance:WORKER'S LEISUREDOB: Three Repository N COMPPolicy Number: [id number] [address] [place], [place] [id number] N [place], [address]Ezs: (419) Date:1171-25-35[address] [place] [address]Obb: [phone] (HP) 35[address]PFPZLUHM, [place] (104) [phone]WP: (888) (HP) [phone] (WP) 06/06/2017 [facility] Insurance:WORKER'S [id number] N Three Repository COMPPolicy Number: BRIEN VIDALES [id number]: (419) Date:[address] [phone] (HP) [address] [address]JG: 06/05/2017 Primary [place] [place] LEISUREDOB: [facility] [id number] [facility] Number: N MAIN [place], Repository [id number] [place] [address]Ezk: Date:Plan Name:[id number] (HP) [address], [place] [address]HE: 06/05/2017 [id number] Primary NICOLLE Villegas [facility] : Insurance:WORKER'S LEISUREDOB: Three Repository N COMPPolicy Number: [id number] [place] [id number] N [place], [address]How: (419) Date:9829-85-07ZC [facility] [address]Vas: [phone] (HP) 264938MXRCWTMQ, [place] [address]WP: (222) (HP) [phone] () 04/11/2017 NICOLLE Primary NICOLLE Villegas Seth [id number] N Insurance:ANTHEMPolicy LEISUREDOB: Community [facility] [place] Number: [id number] Hospital [address]Sud: (419) [id number] Repository [phone] (HP) Date:7719-10-07IM [address]YINQSVF, [place] [address]PU: 04/11/2017 Secondary NOT GIVENUNK [place] Insurance:SELF PAY [facility] Number: Effective Repository Date:2017-04-06
== END ==
PROVIDERS: Family Provider Physician Assistant Medical; PCP Physician Assistant Medical; Referring Provider Nurse Practitioner Family; Visit Provider Nurse Practitioner Family
DX: I25.10 Atherosclerotic heart disease of native coronary artery without angina pectoris (principal); I42.8 Other cardiomyopathies; R06.02 Shortness of breath
CPT/HCPCS: 93306; Q9957; A4216; C8929

== ENCOUNTER 2019-01-21 06:25 | Day surgery (SDC) | payer BC, SELFPAY ==
[2018-12-31 09:24] VITALS: BMI 36.3
--- NOTE | 2018-12-31 09:45 | HP_ITS ---
Intake Vital Signs 12/31/18 Height 5 ft 6 in 12/31/18 Weight: 225 lb 6 oz 12/31/18 Body Mass Index (BMI) 36.3 12/31/18 Blood Pressure 148/83 H 12/31/18 Blood Pressure Location Rt brachial 12/31/18 Blood Pressure Position Sitting 12/31/18 Respiratory Rate 22 H 12/31/18 Pulse Rate 75 12/31/18 Pulse Ox 99 12/31/18 Oxygen Delivery Method nasal canula 12/31/18 Oxygen Flow Rate (L/min) 3 12/31/18 Body Mass Index (BMI) 35.6 Intake Visit Reasons: EGD/Gerd Chief Complaint: GERD/ discuss EGD Plumbing Service Technician Required: No Is patient in pain?: No Allergies gabapentin Allergy (Intermediate, Verified 12/31/18 09:25) feels loopy Medications Albuterol Inhaler [Ventolin Hfa (SP)] 1 puff INHALATION PRN PRN 07/22/14 [History Confirmed 12/31/18] Aspirin [Aspirin, Baby] 81 mg PO DAILY@0800 07/22/14 [History Confirmed 12/31/18] Bilberry 125 mg PO DAILY 07/22/14 [History Confirmed 12/31/18] Biotin 1 mg PO DAILY 07/22/14 [History Confirmed 12/31/18] Cinnamon 500 mg PO DAILY 07/22/14 [History Confirmed 12/31/18] Clobetasol Propionate/Emoll [Clobetasol Emollient 0.05% Crm] 30 gm TP UD 07/22/14 [History Confirmed 12/31/18] Doxepin HCl [Sinequan] 10 mg PO QHS 07/22/14 [History Confirmed 12/31/18] Insulin Glargine [Lantus SoloStar Pen] 0 units SC UD 07/22/14 [History Confirmed 12/31/18] Insulin Lispro [Humalog] 0 unit SC UD 07/22/14 [History Confirmed 12/31/18] Ipratropium/Albuterol Sulfate [Duoneb] 3 ml INHALATION PRN PRN 07/22/14 [History Confirmed 12/31/18] Lansoprazole [Prevacid] 30 mg PO DAILY 07/22/14 [History Confirmed 12/31/18] Levothyroxine Sodium [Levoxyl] 150 mcg PO DAILY 07/22/14 [History Confirmed 12/31/18] Montelukast [Singulair] 10 mg PO DAILY 07/22/14 [History Confirmed 12/31/18] Multivitamins,Therapeutic [Multivitamin] 1 tab PO DAILY 07/22/14 [History Confirmed 12/31/18] Triamcinolone Acetonide 15 gm TP UD 07/22/14 [History Confirmed 12/31/18] ferrous sulfate 325 mg (65 mg iron) tablet 325 mg PO ONCE tab 04/09/17 [History Confirmed 12/31/18] fluticasone fur. 100 mcg-umeclid 62.5 mcg-vilant 25 mcg inhalat.powder 1 inh INHALATION DAILY 03/06/18 [History Confirmed 12/31/18] Oxygen, Home [Home Oxygen] See Rx Instructions INTRANASAL 24XD 04/08/18 [History Confirmed 12/31/18] celecoxib 100 mg capsule 100 mg PO TID cap 04/08/18 [History Confirmed 12/31/18] cholecalciferol (vitamin D3) 10,000 unit capsule 10,000 unit PO .2 x per week cap 04/08/18 [History Confirmed 12/31/18] potassium chloride ER 10 mEq tablet,extended release 10 meq PO DAILY 04/08/18 [History Confirmed 12/31/18] carvedilol 12.5 mg tablet 12.5 mg PO BID #180 tab 10/27/18 [Rx Confirmed 12/31/18] furosemide 40 mg tablet 40 mg PO BID #180 tab 10/27/18 [Rx Confirmed 12/31/18] losartan 50 mg-hydrochlorothiazide 12.5 mg tablet 1 tab PO BID #180 tab 10/27/18 [Rx Confirmed 12/31/18] mometasone 50 mcg/actuation nasal spray 1 spray INTRANASAL UD 10/27/18 [History Confirmed 12/31/18] finasteride 5 mg tablet 5 mg PO DAILY tab 12/31/18 [History Confirmed 12/31/18] glimepiride 4 mg tablet 4 mg PO QAM 12/31/18 [History Confirmed 12/31/18] loratadine 10 mg tablet 10 mg PO DAILY 12/31/18 [History Confirmed 12/31/18] umeclidinium 62.5 mcg-vilanterol 25 mcg/actuation powdr for inhalation 1 inh INHALATION Q24H PRN 08/28/19 [History Confirmed 12/31/18] valsartan 160 mg-hydrochlorothiazide 25 mg tablet 1 tab PO DAILY 12/31/18 [History Confirmed 12/31/18] Is last menstrual period known: No Post menopausal: Yes Patient : No PFSH Medical History Chest pain (Acute) Mixed hyperlipidemia (Chronic) Non-ischemic cardiomyopathy (Chronic) Atherosclerosis of [place] coronary artery of [place] heart without angina pectoris (Chronic) Benign essential HTN (Chronic) COLD (chronic obstructive lung disease) (Chronic) DM2 (diabetes mellitus, type 2) (Chronic) GERD (gastroesophageal reflux disease) (Chronic) ANTOINE (obstructive sleep apnea) (Chronic) Osteoarthritis (Chronic) Papillary thyroid carcinoma (Chronic) Pulmonary HTN (Chronic) Cancer of thyroid (Chronic) Fibromyalgia (Chronic) Surgical History History of cardiac catheterization (Acute ~2011) History of colonoscopy (Acute ~2013) History of esophagogastroduodenoscopy (EGD) (Acute ~2013) History of lumpectomy of left breast (Acute ~2003) H/O thyroidectomy (Resolved) H/O: hysterectomy (Resolved) History of cholecystectomy (Resolved) History of lumpectomy of left breast (Resolved) History of tonsillectomy (Resolved) Family History Mother , Pacemaker CAD (coronary artery disease) Hypertension Diabetes Kidney disease CVA (cerebral vascular accident) Cancer uterine Father , Pacemaker/defibrillator CAD (coronary artery disease) CVA (cerebral vascular accident) Heart disease Hypertension Brother CAD (coronary artery disease) Kidney disease Hypertension Social History (Updated 12/31/18 @ 09:46 by Efraín Tierney MD) Smoking Status: Former smoker how long ago did patient quit smokin years ago alcohol intake: never caffeine: Yes Type: coffee Number of servings: 3 HPI HPI HPI: NICOLLE LEIGH, is a 63 F who presents to the office today for HPI HPI Surgical H&P: Yes HPI: NICOLLE LEIGH, is a 63 F who presents to the office today for Evaluation for an upper endoscopy. This is a complicated 63-year-old white female. She has a history of noncardiac related cardiomyopathy, pulmonary hypertension, hypertension, diabetes mellitus, thyroid disorder, and hyperlipidemia. She is on 3 to 5 L of chronic nasal oxygen. She has a reported history of Rodríguez's esophagus and had an upper endoscopy performed back in 2013 which showed esophageal Coastal changes consistent with short segment of Rodríguez's esophagus biopsied her biopsies at that time only showed squamous esophageal and gastric cardia with no intestinal metaplasia. She had a colonoscopy and was noted to have a hyperplastic polyp of the rectum. ROS General General: Yes fatigue; no weight change, appetite, colon cancer, breast cancer or weakness HEENT HEENT: No difficulty swallowing, eye injury, eye surgery, swollen glands or hoarseness Endo Endocrine: Yes thyroid disease, diabetes mellitus and thyroid cancer; no Hair loss, heat intolerance or cold intolerance Musc Musculoskeletal: Yes back problems and arthritis; no rheumatoid arthritis, gout or joint pain Cardio Cardiovascular: Yes heart disease and high blood pressure; no murmur, pacemaker, atrial fibrillation, heart attack, heart stent, palpitations, shortness of breat with exertion or chest pain Resp Respiratory: Yes shortness of breath, Yes sleep apnea, Yes cough, Yes COPD, Yes asthma, Yes emphysema, No wheezing Gastro Gastrointestinal: No abdominal pain, No nausea or vomiting, No diarrhea, No constipation, No blood in stool, Yes acid reflux, No hemorrhoids, No ulcers, No gallbladder problem, No black,tarry stools Ramon Hematologic: No blood thinners, No blood disorders, No bleeding, Yes anemia, No blood clots Neuro Neurologic: No weakness Exam Const General: no acute distress, well developed, well hydrated Orientation: oriented to person, oriented to place, oriented to time [facility] Head: normocephalic, atraumatic Ears: external ears normal Mouth: moist mucous membranes Eyes Sclera: sclerae normal Pupils: normal by confrontation Neck Neck: no lymphadenopathy noted Neck mass: No Thyroid: thyroid normal, symmetrical Chest Chest palpation & inspection: normal inspection of the chest Resp Effort & Inspection: normal respiratory effort, uses accessory muscles Auscultation: clear to auscultation bilaterally Percussion: percussion normal Cardio Rate: regular rate Rhythm: regular rhythm Heart Sounds: no murmurs GI Inspection: obesity Palpation: soft, no hepatosplenomegaly, no masses, nontender Rectal Exam: other Other: Rectal exam deferred. Extrem General: normal to inspection, no clubbing, cyanosis or edema Assessment & Plan Problems 1. Heartburn R12 2. History of Rodríguez's esophagus Z87.19 Plan I have discussed the above with the patient. I have offered the patient esophagogastroduodenoscopy for evaluation. I have explained the risks/benefits of the procedure and described the procedure. I have discussed the risks with the patient, including but not limited to: infection, bleeding, perforation of the GI tract requiring emergency surgery, inability to complete the procedure, injury to any internal organs, complications of anesthesia, etc. - the patient understands and agrees to proceed. I have answered all the patient's questions to the patient's satisfaction and the patient has no further questions. The patient has been given instructions for the colon cleansing preparation. Given the 10-year history for hyperplastic polyps she is not due for her colonoscopy as of yet. Coding Level of Care Code Off vis,new,level 3 Diagnoses Heartburn R12 History of Rodríguez's esophagus Z87.19 12/31/18 0946 <Electronically signed by Efraín galicia MD> Date _ Efraín Tierney MD I have re-examined the patient. There are no clinical changes since date of exam.
[2019-01-21 06:47] VITALS: BP 133/83; PULSE 77; RESP 18; TEMP 36.2; O2SAT 100; BMI 36.6
[2019-01-21 06:55] LABS: Bedside Glucose 108 mg/dL (70-110)
[2019-01-21] MEDS: Lactated Ringers 1,000 ML 100 ML IV (07:05)
--- NOTE | 2019-01-21 07:30 | IMM_PTH ---
PATIENT: NICOLLE LEIGH LOC: EN U#:[id number] AGE/SX: 63/F ROOM: RE01/21/[address]: Dr. Efraín Tierney MD : 1955 BED: DIS: 01/21/2019 SPEC #: [id number] RECD: 01/21/19 12:52 STATUS: EULOGIO REHector #: [id number] TRUMAN: 01/21/19 07:[address]: Efraín Tierney DEPT: IMMUNOHISTOCHEMISTRY RECD BY: Megan Woodson ENTERED: 01/21/19 12:53 SP TYPE: IMMUNO OTHR DR: TRISHA Mckeon Tissues: A - Stomach, NOS Procedures: H Pylori (initial) PHYSICIAN & INSTITUTION [place] [id number] SPECIMEN INFORMATION: Tissue Source: A - Antrum biopsy Clinical Info: Heartburn, history of Rodríguez's esophagus Specimen Number: [id number] CPT code: 43125 METHODOLOGY: Deparaffinized sections of prefer/formalin-fixed tissue or PAP/DQ stained slides are incubated with monoclonal/polyclonal antibodies/oligonucleotide probes. Localization is made via biotin free immunoperoxidase method. Appropriate controls are performed and reacted as expected. Results on target cell population are indicated in the following table: RESULTS: ANTIBODY / CLONE RESULT Block A H Pylori (polyclonal) negative These tests were developed and their performance characteristics determined by [facility]. They may not have been cleared or approved by the U.S. Food and Drug Administration. The FDA has determined that such clearance or approval is not necessary. INTERPRETATION: A. Antrum biopsy: Negative for Helicobacter pylori organisms. AM:zana 01/22/19
--- NOTE | 2019-01-21 07:30 | EGD_PTH ---
PATIENT: NICOLLE LEIGH LOC: EN U#:[id number] AGE/SX: 63/F ROOM: RE01/21/[address]: Dr. Efraín Tierney MD : 1955 BED: DIS: 01/21/2019 SPEC #: [id number] RECD: 01/21/19 10:45 STATUS: EULOGIO JUANITA #: [id number] TRUMAN: 01/21/19 07:[address]: Efraín Tierney DEPT: SURGICAL PATHOLOGY RECD BY: Fly Jackson ENTERED: 01/21/19 11:33 SP TYPE: EGD BIOPSY OT DR: TRISHA Mckeon Tissues: A - Gastric mucous membrane Esophagus, NOS Procedures: Surgery Specimen Level IV HEADER OPERATION: EGD ([facility] [place]) PRE-OP DIAGNOSIS: Heartburn and history of Rodríguez's esophagus TISSUE SUBMITTED: A. Antrum biopsy for H. pylori, B. Distal esophagus biopsy MICROSCOPIC DIAGNOSIS A. Gastric antrum, biopsy: Mild chronic inflammation. See comment. B. Distal esophagus, biopsy: Junctional mucosa with acute and chronic inflammation. No evidence of goblet cell metaplasia. AM:zana 01/22/19 COMMENT A. The results of immunohistochemistry for Helicobacter pylori will be reported separately ([id number]). MICROSCOPIC DESCRIPTION Slides are reviewed. GROSS DESCRIPTION A - Received in fixative is one container labeled with the patient's name and designated antrum biopsy. The specimen consists of one irregular fragment of light clark soft tissue that measures 0.6 x 0.2 x 0.1 cm. The specimen is totally submitted in one cassette. B - Received in fixative is one container labeled with the patient's name and designated distal esophagus biopsy. The specimen consists of two irregular fragments of light clark soft tissue that in aggregate measure 0.5 x 0.4 x 0.1 cm. The specimen is totally submitted in one cassette. / SJ:zana 01/21/19 TC:2 CPT: 37136 x2
[2019-01-21 08:00] VITALS: BP 119/70; BP 133/83; PULSE 81; RESP 22; TEMP 36.6; O2SAT 93
[2019-01-21 08:05] VITALS: BP 123/65; BP 133/83; PULSE 77; RESP 20; O2SAT 97
--- NOTE | 2019-01-21 08:05 | OP.ENDO_ITS ---
01/21/2019 Dominguez Mckeon Re : Upper GI endoscopy procedure for Urbano Celestin Dear Sydnee This procedure was performed on Monday, January 21, 2019. My impressions and recommendations are as follows: Impressions : - Non-severe reflux esophagitis. Biopsied. - Erythematous mucosa in the prepyloric region of the stomach. Biopsied. - Normal examined duodenum. Recommendations : - Await pathology results. - Repeat upper endoscopy at appointment to be scheduled for surveillance. - Return to my office in 1 week. - Continue present medications. My findings are described in the full procedure note, which is enclosed. If I can be of further assistance, please feel free to contact me at Doctor phone number(s): , Fax: [phone], Work: . Sincerely, MD Efraín Storm MD 01/21/2019 8:05:15 AM This report has been signed electronically.
[2019-01-21 08:10] VITALS: BP 127/76; BP 133/83; PULSE 73; RESP 18; O2SAT 99
[2019-01-21 08:15] VITALS: BP 133/83; BP 136/62; PULSE 71; RESP 18; TEMP 36.8; O2SAT 100
[2019-01-21 08:53] VITALS: BP 133/83
== END 2019-01-21 08:55 | disposition home or self-care (01) ==
LOC: EN 06:26 → AC 06:28
PROVIDERS: Family Provider Physician Assistant Medical; PCP Physician Assistant Medical; Referring Provider Physician Assistant Medical; Visit Provider Surgery
PROC: 0DJ08ZZ Inspection of Upper Intestinal Tract, Via Natural or Artificial Opening Endoscopic (ICD-10-PCS; CPT 43235; principal; 2019-01-21 07:25)
DX: K22.70 Barrett's esophagus without dysplasia (principal); K21.0 Gastro-esophageal reflux disease with esophagitis; R12 Heartburn; K29.70 Gastritis, unspecified, without bleeding; E78.2 Mixed hyperlipidemia; I25.10 Atherosclerotic heart disease of native coronary artery without angina pectoris; I42.9 Cardiomyopathy, unspecified; I10 Essential (primary) hypertension; I27.20 Pulmonary hypertension, unspecified; E11.9 Type 2 diabetes mellitus without complications; J44.9 Chronic obstructive pulmonary disease, unspecified; G47.33 Obstructive sleep apnea (adult) (pediatric); M19.90 Unspecified osteoarthritis, unspecified site; M79.7 Fibromyalgia; D64.9 Anemia, unspecified; Z79.82 Long term (current) use of aspirin; Z79.4 Long term (current) use of insulin; Z79.84 Long term (current) use of oral hypoglycemic drugs; Z99.81 Dependence on supplemental oxygen; Z79.899 Other long term (current) drug therapy; Z87.891 Personal history of nicotine dependence
CPT/HCPCS: 43239; 82962; 88305; 88342; J7120

== ENCOUNTER → 2020-03-28 10:52 | Outpatient (CLI) | payer BC, SELFPAY ==
[2020-03-17 14:02] VITALS: BMI 37.4
--- NOTE | 2020-03-28 10:54 | ECHOD_ITS ---
Reason For Study: Dyspena/SOB Procedure This was a 2D Doppler, Color Flow transthoracic echocardiogram. The exam was of adequate technical quality. Exam performed in department. Left Ventricle Normal LV size. Left ventricular systolic function is normal. The estimated ejection fraction is 60 %. Diastolic function is indeterminate. No regional wall motion abnormalities noted. Right Ventricle Normal RV size. Normal systolic function. Atria Normal left atrium. Normal right atrium. No doppler evidence for ASD. Mitral Valve There is no mitral annular calcification. Normal mitral valve. Trivial mitral valve insufficiency. Tricuspid Valve Normal tricuspid valve. Trivial tricuspid valve insufficiency. Aortic Valve Trisinus/trileaflet aortic valve. Mild focal aortic valve calcification. Pulmonic Valve The pulmonic valve is not well visualized. Mild (1+) pulmonic valve insufficiency. Great Vessels Normal sized aortic root. Calcified aortic root. Pericardium/Pleural Trivial pericardial effusion. There are no echocardiographic indications of cardiac tamponade. MMode/2D Measurements & Calculations LVIDd: 4.7 cm IVSd: 1.4 cm LA dimension: 3.6 cm LVIDs: 2.5 cm LVPWd: 1.2 cm FS: 46.3 % LAV(MOD-bp): 37.7 ml LA A4 area: 15.9 cm2 RA A4 area: 14.4 cm2 LAV(MOD-bp) Indexed: 17.8 ml/m2 LAV(MOD-sp2): 31.4 ml LAV(MOD-sp4): 40.1 ml Time Measurements MV dec time: 0.29 sec Doppler Measurements & Calculations MV E max haim: 51.1 cm/sec Lat Peak E' Haim: 7.2 cm/sec Med Peak E' Haim: 5.4 cm/sec MV A max haim: 69.1 cm/sec E/E' lat: 7.1 E/E' med: 9.4 MV E/A: 0.74 MV V2 max: 83.0 cm/sec MV P1/2t max haim: 58.2 cm/sec Ao V2 max: 105.9 cm/sec MV max P.8 mmHg MV P1/2t: 79.8 msec Ao max P.5 mmHg MV V2 mean: 42.1 cm/sec MV dec slope: 213.8 cm/sec2 MV mean P.86 mmHg MVA(P1/2t): 2.8 cm2 MV V2 VTI: 17.5 cm LV V1 max: 100.3 cm/sec PA V2 max: 100.2 cm/sec LV V1 max P.0 mmHg Interpretation Summary Left ventricular systolic function is normal. The estimated ejection fraction is 60 %. Trivial mitral valve insufficiency. Trivial tricuspid valve insufficiency. Mild focal aortic valve calcification. Mild (1+) pulmonic valve insufficiency. Calcified aortic root. Trivial pericardial effusion. There are no echocardiographic indications of cardiac tamponade. Diastolic function is indeterminate. Ordering Physician: River Lujan Referring Physician: Chiara Randhawa Performed By: Robinson Farnsworth RCS
[2020-03-28 11:46] LABS: Bedside Glucose 132 mg/dL (70-110)
== END ==
PROVIDERS: PCP Physician Assistant Medical; Referring Provider Nurse Practitioner Family; Visit Provider Nurse Practitioner Family
DX: R06.00 Dyspnea, unspecified (principal); R06.02 Shortness of breath; I25.10 Atherosclerotic heart disease of native coronary artery without angina pectoris; I42.8 Other cardiomyopathies; E78.2 Mixed hyperlipidemia; I27.20 Pulmonary hypertension, unspecified; I10 Essential (primary) hypertension
CPT/HCPCS: 82962; 93306

== ENCOUNTER 2020-03-28 12:39 | Emergency (ER) | payer BC, SELFPAY ==
[2020-03-17 14:02] VITALS: BMI 37.4
[2020-03-28] VITALS (7 sets, daily range): BP systolic 112–135; BP diastolic 46–75; PULSE 68–81; RESP 16–18; TEMP 36.3; O2SAT 99–100; BMI 38.8
--- NOTE | 2020-03-28 12:58 | EKG12_ITS ---
Test Reason : CP Blood Pressure : / mmHG Vent. Rate : 069 BPM Atrial Rate : 069 BPM P-R Int : 218 ms QRS Dur : 108 ms QT Int : 408 ms P-R-T Axes : 043 011 080 degrees QTc Int : 437 ms Sinus rhythm with 1st degree A-V block ST elevation consider lateral injury or acute infarct Abnormal ECG Confirmed by ZOFIA MÉNDEZ, ALEXEY ([id number]), scientific publications editor LAISHA POSADA ([id number]) on 03/30/2020 10:43:38 AM Referred By: CHINEDU Confirmed By:ALEXEY ARMIJO MD
--- NOTE | 2020-03-28 12:58 | EKG12_ITS ---
Test Reason : Blood Pressure : / mmHG Vent. Rate : 074 BPM Atrial Rate : 074 BPM P-R Int : 204 ms QRS Dur : 106 ms QT Int : 374 ms P-R-T Axes : 030 006 263 degrees QTc Int : 415 ms Normal sinus rhythm Normal ECG Confirmed by ALEXEY ARMIJO MD ([id number]), school photograph editor LAISHA POSADA ([id number]) on 03/30/2020 10:42:37 AM Referred By: CHINEDU Confirmed By:ALEXEY ARMIJO MD
[2020-03-28] MEDS: Aspirin 81 MG TAB.CHEW 324 MG PO (13:15)
[2020-03-28 13:55] LABS: Absolute Lymphocyte Count 1.23 X10^3/uL (0.83-4.51); Absolute Neutrophil Count 7.9 X10^3/uL (2.0-7.7); Basophil# 0.05 X10^3/uL; Basophil% 0.5 % (0-1); Eosinophil# 0.16 X10^3/uL; Eosinophils% 1.6 % (0-5); Hematocrit 41.9 % (37-47); Lymphocyte # 1.23 X10^3/ul (4.0); Lymphocyte % 12.2 % (19-41); Mean Corp Hgb Conc 28.6 g/dL (32-36); Mean Corpuscular Hgb 25.4 pg (27.0-32.0); Mean Corpuscular Volume 88.6 fL (81-99); Mean Platelet Vol. 9.9 fl (6.2-12.0); Monocyte# 0.58 X10^3/uL; Monocyte% 5.8 % (0-10); NRBC Flagged by Analyzer 0 % (0-5); Neutrophil % 78.6 % (47-70); Platelet Count 224 K/mm3 (150-450); RBC Distribution Width CV 14.9 % (11.6-14.6); RBC Distribution Width SD 48.1 fl (35.1-43.9); Red Blood Count 4.73 M/mm3 (4.2-5.4); White Blood Count 10.1 K/mm3 (4.4-11.0)
--- NOTE | 2020-03-28 14:10 | RAD_ITS ---
EXAM DESCRIPTION: PORTABLE AP CHEST CLINICAL HISTORY: 65 years Female, CHEST PAIN AND NAUSEA CHEST PAIN AND NAUSEA COMPARISON: Previous portable chest obtained on 07/15/2014 FINDINGS: The thorax is intact. The heart and mediastinum appear to be within normal limits. The lungs appear to be well areated without evidence of pneumonic consolidation or pleural effusion. RAD/Chest 1 View (Portable) IMPRESSION: Normal portable chest. Electronically Signed: River Smith, at 14:53 EST Tel , Service support ,
[2020-03-28 15:27] LABS: Anion Gap 7 (5-15); BUN 36 mg/dL (7-18); BUN/Creat Ratio 28.3 RATIO (10-20); Calcium,Total 9.3 mg/dL (8.5-10.1); Chloride 102 mmol/L (98-107); Creatinine, Serum 1.27 mg/dL (0.55-1.02); EST Glomerular Filtration Rate 45 mL/min (>60); Est Glom Filt Rate - Afr Amer 55 mL/min (>60); Estimated Creatinine Clearance 41.89 ml/min; Glucose 181 mg/dL (74-106); Potassium 4.3 mmol/L (3.5-5.1); Sodium Level 133 mmol/L (136-145)
--- NOTE | 2020-03-28 15:35 | EKG12_ITS ---
Test Reason : REPEAT Blood Pressure : / mmHG Vent. Rate : 074 BPM Atrial Rate : 074 BPM P-R Int : 210 ms QRS Dur : 108 ms QT Int : 402 ms P-R-T Axes : 034 011 087 degrees QTc Int : 446 ms Sinus rhythm with 1st degree A-V block Otherwise normal ECG Confirmed by ZOFIA MÉNDEZ, ALEXEY ([id number]), editor managing director LAISHA POSADA ([id number]) on 03/30/2020 10:43:59 AM Referred By: CHINEDU Confirmed By:ALEXEY ARMIJO MD
--- NOTE | 2020-03-28 18:18 | ED.VISSUMM ---
- ER Visit Summary Date of Service: 03/28/20 Chief Complaint: Lightheaded and chest pain History of Present Illness: The patient is a [address] Clancy and Dr. Randhawa. She reports that she was getting an echocardiogram today. When she got up she felt lightheaded, weak, nauseated. States that she had a dull substernal chest pain. This was 2 out of 10 at worst and she is pain-free currently. Nothing seemed to make this better or worse. She does report she was nauseated, but did not vomit. She was also diaphoretic during this. She is chronic shortness of breath is unchanged. Physical Examination: Vitals: Stable. Afebrile. General: Well-nourished and well-developed. Head: Normocephalic atraumatic. Neck: Supple, no lymphadenopathy. No JVD. Nontender. Cardiovascular: Regular rate and rhythm. No murmurs. Respiratory: No respiratory distress. Clear to auscultation bilaterally. Abdominal: Soft, nontender, nondistended, normal bowel sounds. No guarding, rebound, or peritoneal signs. Back: Nontender. Extremities: Nontender, no edema. Skin: Normal color, no rash. Neurologic: Alert and oriented ?3. Cranial nerves II through XII are intact. Normal strength and sensation. Psych: Normal affect. Test Results: EKG is sinus with first-degree AV block at a rate of [address] changes and a great deal of artifact. The machine read this is a STEMI. I do not see any evidence of that. Repeat EKG is sinus at 74 with first-degree AV block and nonspecific ST changes. No evidence of a STEMI. Third EKG is unchanged. There is no old EKG for comparison. Chem-7 shows a sodium 133, BUN of 36, creatinine 1.27, glucose 181. BC shows segmented neutrophils 79, lymphs at 12, anterior granulocytes 1.3%. Initial troponin is negative. Repeat troponin is negative. Clinical Impression(s) from Imaging Studies Chest X-Ray 03/28/20 14:10 IMPRESSION: Normal portable chest. Electronically Signed: River Luis, at 14:53 EST Tel , Service support , Emergency Department Course and Treatment: Patient was given 500 cc bolus of normal saline. She is resting comfortably with no complaints at this time. Treatment Plan: For the patient is a suitable candidate for further outpatient evaluation. She will be discharged instructions to push fluids. 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 Return to the emergency department for any worsening symptoms. Disposition: To home in improved and stable condition. Impression: 1. Near syncope, uncertain cause. 2. Atypical chest pain. 3. Heart score of 4. 2. RAFI score of 2. This note was generated with [employer] dictation software. It may contain incorrect words, spelling, and punctuation that were not noted in review of the chart prior to signing ED Disposition - Plan for ED Patient: Instructions: ED Chest Pain Atypical Unkn Cause Referrals: Chiara Randhawa PA [Primary Care Provider] - 1-2 Days if not improving
== END 2020-03-28 19:04 | disposition home or self-care (01) ==
LOC: ED 13:57
PROVIDERS: Emergency Provider Emergency Medicine; PCP Physician Assistant Medical
DX: R55 Syncope and collapse (principal); R07.9 Chest pain, unspecified; J44.9 Chronic obstructive pulmonary disease, unspecified; E03.9 Hypothyroidism, unspecified; E11.9 Type 2 diabetes mellitus without complications; I10 Essential (primary) hypertension; Z79.4 Long term (current) use of insulin
CPT/HCPCS: 36415; 71045; 80048; 84484; 85025; 93005; 96360; 99285; J7040; A4216

== ENCOUNTER → 2021-09-14 | Outpatient (CLI) | payer MEDICARE, SELFPAY ==
--- NOTE | 2021-09-14 09:04 | STRESSREP_ITS ---
Stress Test Report Date: 09-14-2021 Procedure: Pharmacologic stress nuclear imaging study Indications: Chest pain; cardiomyopathy; hyperlipidemia; hypertension Consent: Per the patient Procedure: The patient underwent pharmacologic (Regadenoson 0.4mg ) evaluation with a peak heart rate of 115 beats per minute (74%predicted maximal heart rate) and a peak blood pressure of 122/80 mmHg. The baseline ECG demonstrated normal sinus rhythm. The peak pharmacologic ECG demonstrated no obvious ECG changes. There was a rare PVC during recovery. There was no complaint of chest discomfort during pharmacologic infusion or recovery. The examination was discontinued secondary to completion of protocol. Impression: 1. Pharmacologic (Regadenoson) evaluation 2. Peak pharmacologic ECG with no obvious ECG changes. 3. There was a rare PVC during recovery. 4. Nuclear images pending Myocardial perfusion imaging study: Technique: The patient was injected with 14.9 millicuries of technetium 99m Cardiolite and subsequently rest SPECT Cardiolite nuclear imaging was obtained in the horizontal long, vertical long, and short axis views. The patient underwent pharmacologic (Regadenoson) evaluation with a peak heart rate of 115 beats per minute (74% percent predicted maximal heart rate) and a peak blood pressure of 122/80 mmHg. The patient was injected with 44.6 millicuries of technetium 99m Cardiolite and subsequently stress SPECT Cardiolite nuclear imaging was obtained in the horizontal long, vertical long, and short axis views. A gated Cardiolite study at peak stress was obtained. Interpretation: Rest and stress SPECT Cardiolite nuclear imaging status post realignment, normalization, and attenuation correction demonstrate the appearance of diminished myocardial perfusion/tracer uptake in the apical areas which on the SPECT images appears similar between rest and stress and on the polar map images appears somewhat more prominent following stress. There is end systolic thickening and brightening. The gated Cardiolite study demonstrates myocardial thickening and inward wall motion. The reported LVEF is 69%. Impression: 1. Rest and stress SPECT Cardiolite nuclear imaging demonstrate myocardial perfusion changes appearing compatible with physiologic apical thinning, however, based upon the polar map images an element of stress-induced myocardial ischemia cannot necessarily be excluded. 2. The gated Cardiolite study reports an LVEF of 69%. This note was generated with [employer] software. It may contain incorrect words, spelling, and punctuation that were not noted in checking the note before signing.
== END | disposition home or self-care (01) ==
LOC: CVS 06:08
PROVIDERS: PCP Physician Assistant Medical; Referring Provider Nurse Practitioner Family; Visit Provider Nurse Practitioner Family
DX: I47.2 Ventricular tachycardia (principal); I42.8 Other cardiomyopathies; E11.9 Type 2 diabetes mellitus without complications; I25.10 Atherosclerotic heart disease of native coronary artery without angina pectoris; E78.2 Mixed hyperlipidemia
CPT/HCPCS: 78452; 93017; A9500; A4216; J2785